=== PATIENT | female | born 1950 | race Caucasian/White ===

== ENCOUNTER 2019-04-21 09:21 | Outpatient (CLI) | payer MEDICARE, SELFPAY ==
--- NOTE | ~2019-04-21 | MM_ITS ---
EXAMINATION: MM screening jaylan BI w delbert HISTORY: Screening mammogram TECHNIQUE: Craniocaudal and mediolateral oblique 3-D tomosynthesis images were obtained and synthetic 2-D images were generated. CAD analysis was submitted and interpreted. COMPARISON: Comparison to multiple prior studies sequentially, with oldest reviewed study dated 11/05. BREAST PARENCHYMAL COMPOSITION: There are scattered areas of fibroglandular density. FINDINGS: There is no evidence of suspicious mass, calcification, or architectural distortion to sugg est malignancy in either breast. There has been no suspicious interval change. IMPRESSION: 1. No mammographic evidence of malignancy. 2. Recommend routine screening mammography in one year. BI-RADS Category 1: Negative Reviewed, dictated and finalized at location A. 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
== END 2019-04-21 09:22 | disposition home or self-care (01) ==
LOC: ANHIMG 09:26
PROVIDERS: PCP Family Medicine; Visit Provider Nurse Practitioner Obstetrics & Gynecology
DX: Z12.31 Encounter for screening mammogram for malignant neoplasm of breast (principal)
CPT/HCPCS: 77063; 77067

== ENCOUNTER 2019-11-29 01:04 | Outpatient (CLI) | payer MEDICARE, SELFPAY ==
[2019-11-29 19:19] LABS: SARS-CoV-2 RNA PCR Negative
== END 2019-11-29 01:05 | disposition home or self-care (01) ==
LOC: ANHCOVIDDT 01:04
PROVIDERS: PCP Family Medicine; Visit Provider Internal Medicine Gastroenterology
DX: Z01.812 Encounter for preprocedural laboratory examination (principal); Z20.828 Contact with and (suspected) exposure to other viral communicable diseases
CPT/HCPCS: 87635; C9803; U0003

== ENCOUNTER 2019-12-01 | Day surgery (SDC) | payer MEDICARE, SELFPAY ==
[2019-11-24 15:05] VITALS: BMI 23.4
[2019-12-01 10:07] VITALS: BP 140/63; PULSE 81; RESP 20; TEMP 36.4; O2SAT 100
[2019-12-01] MEDS: LACTATED RINGERS 1,000 ML 150 ML IV CONT (10:18)
--- NOTE | 2019-12-01 10:32 | PM.HPGS ---
History of Present Illness History of Present Illness Consent: Risks, benefits, and alternatives have been discussed and questions answered. Patient agrees to proceed with procedure. Chief complaint: hx of polyps Narrative: Maine Cook is a 69 year old female here for colon cancer screening. She has had polyps in the past PMFSH Past Medical History Medical History (Updated 12/01/19 @ 10:33 by Talib Fields MD) Amputation of left index finger 7.7.20 Family History Family History Grandparent Diabetes mellitus Mother Patient's mother is Family history of malignant neoplasm of breast in first degree relative Father Patient's father is Family history of pancreatic cancer Social History Social History Smoking status: Never smoker Alcohol intake: current Drinks per week: 4 Alcohol use details: WINE/BEER Substance use: current Substance use type: marijuana Other substance usage details: EDIBLES Last use: LAST WEEK Living arrangements: with family Spiritual care concerns: No Meds Home Medications and Allergies Home Medications Medication Instructions Recorded Confirmed Type pravastatin 10 mg tablet 10 mg PO DAILY #90 tablet 08/17/19 11/24/19 Rx ascorbate calcium (vitamin C) 500 500 mg PO DAILY 09/04/19 11/24/19 History mg tablet raloxifene 60 mg tablet 60 mg PO DAILY 09/04/19 11/24/19 History calcium carbonate [Calcium 500] 500 mg PO BID 11/24/19 11/24/19 History cholecalciferol (vitamin D3) 25 mcg PO DAILY 11/24/19 11/24/19 History [Vitamin D3] Allergies Allergy/AdvReac Type Severity Reaction Status Date / Time No Known Allergies Allergy Verified 12/01/19 10:05 Vital Signs Vital Signs - 24 hr 12/01/19 10:07 Temperature 36.4 C Pulse Rate 81 Respiratory Rate 20 Blood Pressure 140/63 Pulse Oximetry 100 Exam Resp: Auscultation: clear to auscultation bilaterally Cardio: Rate: regular rate Rhythm: regular rhythm GI: GI Palp: Yes Soft to palpation and No Tenderness to palpation present (GI) Assessment and Plan Assessment and plan (1) Colon cancer screening: Code(s): Z12.11 - Encounter for screening for malignant neoplasm of colon Status: Acute Assessment and Plan: Colonoscopy with possible biopsy or polypectomy or cautery or injection of substances.
--- NOTE | 2019-12-01 10:43 | P.PNAN_ITS ---
Anes - Initial Pre Proc Eval Procedure: Operation Date: 12/01/19 11:00 Proposed Procedures p Screening Colonoscopy - Talib Fields MD Date/Time: 12/01/19 10:43 Surgeon: Talib Fields MD Pre Op Diagnosis: hx of polyps Patient Data Age: 69 Gender: F Height: 5 ft 3 in Weight: 58.9 kg Last Vital Signs Temp 97.6 F 12/01/19 10:07 Pulse 81 12/01/19 10:07 Resp 20 12/01/19 10:07 BP 140/63 12/01/19 10:07 Pulse Ox 100 12/01/19 10:07 Allergies Allergy/AdvReac Type Severity Reaction Status Date / Time No Known Allergies Allergy Verified 12/01/19 10:05 Home Medications Medication Instructions Recorded Confirmed Type pravastatin 10 mg tablet 10 mg PO DAILY #90 tablet 08/17/19 11/24/19 Rx ascorbate calcium (vitamin C) 500 500 mg PO DAILY 09/04/19 11/24/19 History mg tablet raloxifene 60 mg tablet 60 mg PO DAILY 09/04/19 11/24/19 History calcium carbonate [Calcium 500] 500 mg PO BID 11/24/19 11/24/19 History cholecalciferol (vitamin D3) 25 mcg PO DAILY 11/24/19 11/24/19 History [Vitamin D3] Patient hx anesthesia problems: none Family hx anesthesia problems: none PMFSH Past Medical History Medical History (Updated 12/01/19 @ 10:43 by Juan Hull MD) Amputation of left index finger 7.7.20 Mixed hyperlipidemia Family History Family History Grandparent Diabetes mellitus Mother Patient's mother is Family history of malignant neoplasm of breast in first degree relative Father Patient's father is Family history of pancreatic cancer Social History Social History Smoking status: Never smoker Alcohol intake: current Drinks per week: 4 Alcohol use details: WINE/BEER Substance use: current Substance use type: marijuana Other substance usage details: EDIBLES Last use: LAST WEEK Living arrangements: with family Spiritual care concerns: No Anes - Eval Final PreProcedure Day of Procedure 12/01/19 10:43 Patient weight: normal Heart: regular rate and rhythm Lungs: clear to auscultation Airway: Mallampati scale class II Neurological: alert and oriented Last oral intake: >/= 8 hours ASA classification: II Emergent: no Anesthetic plan: proceed Anesthesia type and monitoring: general GIVS and standard monitoring Informed Consent: The patient's anesthetic plan and its attendant risks and bene fits were discussed with the patient/family/POA. Questions were solicited and answers provided to the satisfaction of the patient/family/POA.
[2019-12-01 11:10] VITALS: BP 111/60; PULSE 75; RESP 16; O2SAT 98
[2019-12-01 11:20] VITALS: BP 115/47; PULSE 68; RESP 16; O2SAT 100
[2019-12-01 11:30] VITALS: BP 114/75; PULSE 65; RESP 14; O2SAT 100
== END 2019-12-01 11:47 | disposition home or self-care (01) ==
PROVIDERS: PCP Family Medicine; Visit Provider Internal Medicine Gastroenterology
PROC: 0DJD8ZZ Inspection of Lower Intestinal Tract, Via Natural or Artificial Opening Endoscopic (ICD-10-PCS; CPT 45378; principal; 2019-12-01 11:00)
DX: Z12.11 Encounter for screening for malignant neoplasm of colon (principal); C18.0 Malignant neoplasm of cecum; D12.3 Benign neoplasm of transverse colon; K64.8 Other hemorrhoids; E78.2 Mixed hyperlipidemia; F12.90 Cannabis use, unspecified, uncomplicated
CPT/HCPCS: 45380; 45381; 88305; J2704; J7120

== ENCOUNTER 2019-12-15 13:51 | Outpatient (CLI) | payer MEDICARE, SELFPAY ==
--- NOTE | ~2019-12-15 | CT_ITS ---
EXAMINATION: CT abdomen pelvis w con EXAM DATE: 12/15/2019 14:20 INDICATION: Colon cancer. TECHNIQUE: Spiral CT of the abdomen and pelvis was performed following intravenous injection of 100 m L Omnipaque 350. Axial, coronal and sagittal images were reviewed. The dose-length product (DLP) fo r this examination was 303.73 mGy-cm. The exposure was tailored according to patient size (auto mA e xposure control), and iterative reconstruction (ASIR) was used as additional dose reduction technique . There is no prior study for comparison. FINDINGS: There is region of ascending colonic wall irregularity, could be the cancer stated in histo ry for indication of exam. This region is for about 5 cm in length. There is a round lymph node in th e mesentery adjacent to this measuring 7 mm in size, which is considered within normal limits, but ro und shape is suspicious for early metastatic involvement. Liver fluid density lesions consistent with cysts. Largest in the left liver lobe measuring 2.2 cm. S pleen, adrenal glands, pancreas are unremarkable. Gallbladder is unremarkable. No biliary obstructi on. Portal and splenic veins are patent. Kidneys enhance symmetrically. There is no hydronephrosis . The uterus is unremarkable. Some nabothian cysts. The bladder is unremarkable. There is no retr operitoneal or pelvic lymphadenopathy. There is mild scattered arteriosclerotic disease. The appendix is normal. The stomach and small bowel are unremarkable. There is expected amount of c olonic stool. No free intraperitoneal gas. The heart is normal in size. There are no pericardial or pleural effusions. The lung bases are unremarkable. Mild lumbar dextroscoliosis. There are no o steoblastic or osteolytic lesions identified. IMPRESSION: Short segment ascending colonic wall irregularity suspicious for adenocarcinoma. Suspici on of positive adjacent mesenteric lymph nodes. Reviewed, dictated and finalized at location A. IMPRESSION: Short segment ascending colonic wall irregularity suspicious for ad enocarcinoma. Suspicion of positive adjacent mesenteric lymph nodes.
[2019-12-15 14:15] LABS: Estimated Glomerular Filt Rate > 60
== END 2019-12-15 13:52 | disposition home or self-care (01) ==
LOC: ANHIMG 13:56
PROVIDERS: PCP Family Medicine; Visit Provider Internal Medicine Gastroenterology
DX: C18.0 Malignant neoplasm of cecum (principal)
CPT/HCPCS: 74177; Q9967

== ENCOUNTER 2019-12-20 09:54 | Outpatient (CLI) | payer MEDICARE, SELFPAY ==
--- NOTE | ~2019-12-20 | XR_ITS ---
EXAMINATION: XR chest 2V DATE: 12/20/2019 10:51 INDICATION: Colon cancer. Preop. TECHNIQUE: Frontal and lateral views of the chest were obtained. COMPARISON: CT abdomen and pelvis 12/15/2019 FINDINGS: There is mild scarring at right lung apex. No pleural effusion or pneumothorax. The heart s ize is normal. IMPRESSION: 1. Mild scarring at right lung apex. Reviewed, dictated and finalized at location A.
--- NOTE | 2019-12-20 10:35 | ECG_ITS ---
Measurements Intervals [place] Rate: 58 P: 60 AR: 137 QRS: 18 QRSD: 80 T: 32 QT: 436 QTc: 432 Interpretive Statements SINUS BRADYCARDIA POSSIBLE LEFT ATRIAL ENLARGEMENT INCOMPLETE RIGHT BUNDLE BRANCH BLOCK BASELINE ARTIFACT- I, II, III, AVR, AVL, AVF BORDERLINE ECG Electronically Signed On 12-20-2019 10:56:23 CDT by Ronaldo Allison D.O.
[2019-12-20 11:06] LABS: Basophils Percent Auto 0.6 % (0.2-1.2); Eosinophils Absolute Auto 0.2 K/mm3 (0-0.3); Eosinophils Percent Auto 2.8 % (0-4.4); Hematocrit 35.7 % (37.0-47.0); Hemoglobin 11.4 g/dL (12.0-15.0); Immature Granulocyte Absolute 0.05 K/mm3 (0.00-0.031); Immature Granulocyte Percent A 0.7 % (0-0.5); Lymphocytes Absolute Auto 1.93 K/mm3 (0.9-3.2); Lymphocytes Percent Auto 26.8 % (18.3-44.2); Mean Corpuscular HGB Conc 31.9 g/dl (32-36); Mean Corpuscular Hemoglobin 31.2 pg (26-34); Mean Corpuscular Volume 97.8 fl (80-100); Mean Platelet Volume 10.5 fl (7.4-10.4); Monocytes Absolute Auto 0.4 K/mm3 (0.1-0.6); Neutrophils Absolute Auto 4.6 K/mm3 (1.3-6.7); Neutrophils Percent Auto 63.1 % (45.5-73.1); Platelet Count Result 269 k/mm3 (150-375); Red Blood Count 3.65 M/mm3 (4.2-5.4); White Blood Count 7.2 K/mm3 (4.5-10.0)
[2019-12-20 11:17] LABS: Anion Gap 5 mmol/L (8-16); Blood Urea Nitrogen 17 mg/dL (7-17); Carbon Dioxide 32 mmol/L (22-30); Chloride 105 mmol/L (98-107); Estimated Glomerular Filt Rate > 60; Glucose 105 mg/dL (65-105); Potassium 4.1 mmol/L (3.4-5.0); Sodium 142 mmol/L (137-145)
[2019-12-20 11:46] LABS: Carcinoembryonic Antigen 2.8 ng/mL (0.0-3.0)
== END 2019-12-20 09:55 | disposition home or self-care (01) ==
LOC: ANHSURGERY 09:56
PROVIDERS: PCP Family Medicine; Visit Provider Surgery
DX: Z01.818 Encounter for other preprocedural examination (principal); C18.2 Malignant neoplasm of ascending colon; R91.8 Other nonspecific abnormal finding of lung field
CPT/HCPCS: 36415; 71046; 80048; 82378; 85025; 86850; 86900; 86901; 93005

== ENCOUNTER 2019-12-25 00:25 | Outpatient (CLI) | payer MEDICARE, SELFPAY ==
[2019-12-25 19:58] LABS: SARS-CoV-2 RNA PCR Negative
== END 2019-12-25 00:26 | disposition home or self-care (01) ==
LOC: ANHCOVIDDT 00:25
PROVIDERS: PCP Family Medicine; Visit Provider Surgery
DX: Z01.812 Encounter for preprocedural laboratory examination (principal); Z20.828 Contact with and (suspected) exposure to other viral communicable diseases
CPT/HCPCS: 87635; C9803; U0003

== ENCOUNTER 2019-12-27 02:39 | Day surgery (SDC) | payer MEDICARE, SELFPAY ==
[2019-12-20 10:15] VITALS: BP 134/58; PULSE 66; RESP 18; TEMP 36.9; O2SAT 100; BMI 23.7
--- NOTE | 2019-12-26 16:04 | WPDANESEPPF ---
Anes - Initial Pre Proc Eval Procedure: Operation Date: 12/27/19 10:30 Proposed Procedures p Hand Assisted Laparoscopic Right Colectomy - Mitchell Hernandez MD Date/Time: 12/26/19 16:04 Surgeon: Mitchell Hernandez MD Pre Op Diagnosis: ascending colon CA Patient Data Age: 69 Gender: F Height: 1.6 m Weight: 60.8 kg Last Vital Signs Temp 36.9 C 12/20/19 10:15 Pulse 66 12/20/19 10:15 Resp 18 12/20/19 10:15 BP 134/58 L 12/20/19 10:15 Pulse Ox 100 12/20/19 10:15 Allergies Allergy/AdvReac Type Severity Reaction Status Date / Time No Known Allergies Allergy Verified 12/18/19 09:11 Home Medications Medication Instructions Recorded Confirmed Type raloxifene 60 mg tablet 60 mg PO DAILY 09/04/19 12/20/19 History calcium carbonate [Calcium 500] 1,000 mg PO BID 11/24/19 12/20/19 History cholecalciferol (vitamin D3) 25 mcg PO DAILY 11/24/19 12/20/19 History [Vitamin D3] erythromycin 500 mg tablet 1 g PO ONCE #6 tablet 12/18/19 12/20/19 Rx neomycin 500 mg tablet 1 g PO ONCE #6 tablet 12/18/19 12/20/19 Rx ascorbic acid (vitamin C) [Vitamin 500 mg PO DAILY 12/20/19 12/20/19 History C] cyanocobalamin (vitamin B-12) 1,000 mcg PO DAILY 12/20/19 12/20/19 History pravastatin 10 mg PO HS 12/20/19 12/20/19 History ECG: Date of Service: 12/20/19 Procedure(s): CA 12 lead EKG Accession Number(s): [id number] cc: ~ Measurements Intervals [place] Rate: 58 P: 60 TN: 137 QRS: 18 QRSD: 80 T: 32 QT: 436 QTc: 432 Interpretive Statements SINUS BRADYCARDIA POSSIBLE LEFT ATRIAL ENLARGEMENT INCOMPLETE RIGHT BUNDLE BRANCH BLOCK BASELINE ARTIFACT- I, II, III, AVR, AVL, AVF BORDERLINE ECG Electronically Signed On 12-20-2019 10:56:23 CDT by Ronaldo Allison D.O. Dictated By: Ronaldo Allison DO 12/20/19 1106 Patient hx anesthesia problems: none Family hx anesthesia problems: none PMFSH Past Medical History Medical History (Updated 12/18/19 @ 10:30 by Radha Salinas [facility]) Abnormal colonoscopy 10.. Amputation of left index finger 7.7.20 Colon cancer screening Colonic mass Mixed hyperlipidemia Surgical History Surgical History History of x3 History of colonoscopy Family History Family History Grandparent Diabetes mellitus Mother Patient's mother is Family history of malignant neoplasm of breast in first degree relative Father Patient's father is Family history of pancreatic cancer Other Cancer Social History Social History Smoking status: Former smoker Alcohol intake: current Drinks per week: 4 Substance use: current Substance use type: marijuana Other substance usage details: EDIBLES Last use: STATES ABOUT A WEEK AGO Living arrangements: with family Gender identity (if verbalized by the patient): Female Spiritual care concerns: No Anes - Eval Final PreProcedure Day of Procedure 12/26/19 16:04 Patient weight: normal Heart: regular rate and rhythm Lungs: clear to auscultation and normal air movement Airway: Mallampati scale class II Neurological: alert and oriented Last oral intake: >/= 8 hours ASA classification: III Emergent: no Anesthetic plan: proceed Anesthesia type and monitoring: general ETT Informed Consent: The patient's anesthetic plan and its attendant risks and benefits were discussed with the patient/family/POA. Questions were solicited and answers provided to the satisfaction of the patient/family/POA.
[2019-12-27] VITALS (14 sets, daily range): BP systolic 118–146; BP diastolic 51–78; PULSE 69–105; RESP 10–18; TEMP 36.3–37.1; O2SAT 95–100
--- NOTE | 2019-12-27 07:02 | WPDHPUPDATE1 ---
History and Physical Update Update Date/Time: 12/27/19 07:02 History and Physical has been reviewed, including an updated exam of the patient. There are NO changes in the patient's condition. Risks, benefits, and alternatives have been discussed and questions answered. Patient agrees to proceed with procedure.
[2019-12-27] MEDS: LACTATED RINGERS 1,000 ML 30 ML IV CONT ×2 (09:05→14:05)
[2019-12-27] MEDS: KETOROLAC 15 MG/ML VIAL (*BKC) IV PUSH (09:20)
[2019-12-27] MEDS: ACETAMINOPHEN 500 MG TABLET 1000 MG PO (09:20)
--- NOTE | 2019-12-27 10:22 | SUR.PREOP ---
1000 PT UPDATED ON DELAYED SURGERY TIME, DENIES NEEDS AT THIS TIME.
[2019-12-27] MEDS: ALVIMOPAN 12 MG CAPSULE PO (11:05)
[2019-12-27] MEDS: ceFAZolin 2 GM/D5W 50 ML 2 GM/50 ML BAG IVPB (11:49)
[2019-12-27] MEDS: BUPIVACAINE/EPINEPHRINE 0.25% 50 ML VIAL INFILTRATE (12:34)
--- NOTE | 2019-12-27 14:13 | PM.PROC ---
Procedure Note - Detailed Date of procedure: 12/27/19 Pre-op diagnosis: ascending colon CA Ascending colon cancer Post-op diagnosis: same Procedure performed: Hand access laparoscopic right colectomy with ileotransverse anastomosis Description of procedure: The patient was taken to surgery and induced into general anesthesia. The abdomen was prepped and draped. The proposed hand access port incision was marked in the upper midline. Local was infiltrated into the area of the anticipated incision as was the subcutaneous. Incision was made and dissection was carried down through the subcutaneous to the fascia. Additional local was infiltrated into the fascia. The fascia was opened in the midline and then peritoneum was opened. We extended the opening the length of the wound. The Kade was placed and then the GelPort. With a hand in the abdomen, I placed the right lower quadrant trocar. Local was infiltrated prior to placement of the trocar. Once the trocar was in position, we insufflated. The left lower quadrant trocar was then placed again using local but under direct visualization. We continued insufflation and were able to see the tattooing of the right colon cancer. It appeared to be just distal to the cecum. I exposed the distal ileum and then using the LigaSure divided the peritoneum to the distal ileum at its base. I then used sharp and blunt dissection to create a retroperitoneal pocket. I then continued with a medial to lateral dissection of the ascending colon using mostly blunt dissection. On dissecting up to the transverse mesocolon, I stopped this dissection. I then exposed the lateral peritoneal attachments to the ascending colon and divided those. The mesentery to the distal ileum was then exposed. I could palpate the ileocolic artery. I divided the mesentery in roughly the area where I planned to do the proximal resection. I used the LigaSure again and divided the mesentery up to the area on the distal ileum where the resection was planned. I then divided the mesentery closer to its root over to the ileocolic artery. I dissected around the ileocolic artery. Once it was dissected adequately, I used the LigaSure to divide it. There was no bleeding. I then continued using the LigaSure and divided the mesentery to the ascending colon. I took down the hepatocolic ligament and some omental adhesions at the hepatic flexure. I then continued dividing the mesentery to the hepatic flexure and proximal transverse colon. This continued over and I divided the right branch of the middle colic artery again using LigaSure. Care was taken to avoid the duodenum and the stomach. Some additional omental adhesions were taken down. I then had enough mobilization of the ascending colon and transverse colon to proceed with evisceration and anastomosis. We stopped insufflation. I removed the GelPort. I brought out the ascending colon with the distal ileum and most of the transverse colon. All looked good. I brought the area where I planned to divide the distal ileum in the vicinity of where the distal line of resection would be at the proximal transverse colon. These were then sutured together using seromuscular interrupted 4 0 silk suture. They were sutured in side to side fashion planning a stapled 2 layer [id number] but functional end-to-end anastomosis. After these sutures were placed, I made an enterotomy and a colotomy such that I could pass the TLC 75 stapler through each of the limbs of bowel. This was done and I stapled the distal ileum and transverse colon in this fashion. I then used a reload on the TLC 75 stapler and divided the ascending colon including the entero-colotomy from the anastomosis. This went well and the right colon was passed off as a specimen. I then used 4 0 silk Lembert sutures to imbricate the transverse staple line I had just created. The bowel looked quite good. It was healthy, well vascularized, and under no tension wh
[2019-12-27] MEDS: fentaNYL CITRATE INJ (*CRX) 100 MCG/2 ML VIAL 25 MCG IV PUSH ×2 (14:50→14:57)
--- NOTE | 2019-12-27 16:01 | ADMGEN ---
This patient, Maine Cook, was admitted to 2 Medical Room 242-. Patient/family oriented to hospital policies and general routines including ID bracelet, bed and alarms, visiting hours, pain management, procedures, bathroom and other care routines, personal items, smoking policy, room service/diet, and visiting hours. Information on how to activate the Rapid Response Team has been discussed. Patient/Family are encouraged to report perceived risks to care and to ask questions if they do not understand what they are told or what they should do.
[2019-12-27] MEDS: LACTATED RINGERS 1,000 ML 80 ML IV CONT (16:19)
[2019-12-27] MEDS: PRAVASTATIN SODIUM 10 MG TABLET PO (21:12)
[2019-12-27] MEDS: ENOXAPARIN 30 MG/0.3 ML SYRINGE SUB-Q (21:12)
[2019-12-27] MEDS: HYDROcodone/acetaminophen (*CRX) 5-325 MG TABLET 1 TAB PO (22:00)
[2019-12-28] MEDS: LACTATED RINGERS 1,000 ML 80 ML IV CONT (04:13)
[2019-12-28 05:13] LABS: Hematocrit 34.7 % (37.0-47.0); Hemoglobin 11.3 g/dL (12.0-15.0); Mean Corpuscular HGB Conc 32.6 g/dl (32-36); Mean Corpuscular Hemoglobin 31.5 pg (26-34); Mean Corpuscular Volume 96.7 fl (80-100); Mean Platelet Volume 10.3 fl (7.4-10.4); Platelet Count Result 252 k/mm3 (150-375); Red Blood Count 3.59 M/mm3 (4.2-5.4); Red Cell Distribution Width 13.2 % (11.5-14.5); White Blood Count 14.8 K/mm3 (4.5-10.0)
[2019-12-28 05:22] VITALS: BP 122/64; PULSE 71; RESP 20; TEMP 36.8; O2SAT 100
[2019-12-28 05:29] LABS: Anion Gap 6 mmol/L (8-16); Blood Urea Nitrogen 12 mg/dL (7-17); Calcium 8.6 mg/dL (8.4-10.2); Carbon Dioxide 28 mmol/L (22-30); Chloride 107 mmol/L (98-107); Estimated CRCL calculation 42 ml/min; Estimated Glomerular Filt Rate > 60; Glucose 134 mg/dL (65-105); Potassium 4.1 mmol/L (3.4-5.0); Sodium 141 mmol/L (137-145)
--- NOTE | 2019-12-28 07:45 | WPDANESPN ---
Anes - Prog Note Post-Op Date/Time: 12/28/19 07:45 Cardiovascular status: normal Respiratory status: normal Airway patency: baseline Mental status: baseline Post-Op hydration status: normal Vital Signs: Last Vital Signs Temp 36.8 C 12/28/19 05:22 Pulse 71 12/28/19 05:22 Resp 20 12/28/19 05:22 BP 122/64 12/28/19 05:22 Pulse Ox 100 12/28/19 05:22 Pain Score (VAS): 04/03 I/O: Intake & Output 12/27/19 12/27/19 12/28/19 15:59 23:59 07:59 Intake Total 640 1000 1500 Output Total 800 Balance 640 1000 700 Laboratory Tests 12/28/19 04:58 12/28/19 04:58 12/28/19 12/28/19 04:58 04:58 WBC 14.8 H RBC 3.59 L Hgb 11.3 L Hct 34.7 L MCV 96.7 MCH 31.5 MCHC 32.6 RDW 13.2 Plt Count 252 MPV 10.3 Sodium 141 Potassium 4.1 Chloride 107 Carbon Dioxide 28 Anion Gap 6 L BUN 12 D Creatinine 0.90 Estim Creat Clear Calc 42 Estimated GFR > 60 Glucose 134 H Calcium 8.6 Post-procedural complaints: none Patient Feedback: Patient satisfied with anesthetic care.
[2019-12-28] MEDS: ALVIMOPAN 12 MG CAPSULE PO (08:18)
[2019-12-28] MEDS: RALOXIFENE HCL (*CHEMO) 60 MG TABLET PO (08:18)
[2019-12-28] MEDS: ASCORBIC ACID 500 MG TABLET PO (08:18)
[2019-12-28] MEDS: PANTOPRAZOLE 40 MG TABLET PO (08:18)
[2019-12-28] MEDS: ENOXAPARIN 30 MG/0.3 ML SYRINGE SUB-Q (08:32)
--- NOTE | 2019-12-28 08:34 | PM.DS ---
DS: Admitting Diagnosis Admitting Diagnosis Admitting Diagnosis: right colon cancer DS: Discharge Diagnosis Discharge Diagnosis (1) Ascending colon malignant neoplasm: Code(s): C18.2 - Malignant neoplasm of ascending colon Status: Chronic Assessment and Plan: doing very well status post hand access laparoscopic right colectomy yesterday December 27, 2019. DS: Summary Time Spent with Patient Time attestation: Total time spent providing and/or coordinating discharge services: Patient underwent hand access laparoscopic right colectomy on the day of admission 12/27/2019. There was essentially no bleeding associated with this surgery. A stapled [id number] but functional end-to-end anastomosis was performed at surgery. Postoperatively, the patient was up walking in the halls the morning after surgery. She had only been taking oral pain medication. She was hungry and eating well. Labs were stable. She was able to be discharged later in the day postop day 1. Exam GI: Inspection: non-distended and incision ( All incisions dry and intact.) GI Palp: Yes Soft to palpation and Yes Tenderness to palpation present (GI) ( Minimal tenderness, less than expected.) Auscultation: normal bowel sounds DS: Data Data Completed and Pending Pending studies at discharge: Pending at discharge 12/27/19 13:15 Surgical [PTH] Routine Labs on day of discharge: Labs from last 24 hours 12/28/19 12/28/19 04:58 04:58 WBC 14.8 H RBC 3.59 L Hgb 11.3 L Hct 34.7 L MCV 96.7 MCH 31.5 MCHC 32.6 RDW 13.2 Plt Count 252 MPV 10.3 Sodium 141 Potassium 4.1 Chloride 107 Carbon Dioxide 28 Anion Gap 6 L BUN 12 D Creatinine 0.90 Estim Creat Clear Calc 42 Estimated GFR > 60 Glucose 134 H Calcium 8.6 Discharge Plan Discharge Attending physician on discharge: Mitchell Hernandez Discharging Clinician: Mitchell Hernandez Anticipated Discharge Date/Time: 12/28/19 17:00 Patient Disposition: Home, Self-Care Activity: may shower, no straining and as tolerated Diet: regular Wound Care Instructions: incision open to air Discharge Instructions: Ambulate 3-4 x per day and as tolerated. No lifting over 15-20lbs. May bathe or shower. Stairs are OK. May drive a car in 3 days. Remove any dressings before shower and replace after. Patient Instructions: Antibiotic Form Stand Alone Forms: General Discharge Information Follow-up/Referrals: Mitchell Hernandez MD [Physician] - Keep Reg. Scheduled Appt. Maribel Coates MD [Primary Care Provider] - 2 Weeks Discharge Medications: New hydrocodone-acetaminophen 5-325 mg tablet 1 - 2 tablet PO Q6H PRN (Reason: pain) Qty: 7 RF: 0 ibuprofen 600 mg tablet 600 mg PO Q6H PRN (Reason: pain) Qty: 14 RF: 0 Continued raloxifene [Evista] 60 mg tablet 60 mg PO DAILY RF: 0 calcium carbonate [Calcium 500] 500 mg calcium (1,250 mg) Tablet,Chewable 1,000 mg PO QAM RF: 0 cholecalciferol (vitamin D3) [Vitamin D3] 25 mcg (1,000 unit) Tablet 25 mcg PO DAILY RF: 0 cyanocobalamin (vitamin B-12) 1,000 mcg Tablet 1,000 mcg PO DAILY RF: 0 ascorbic acid (vitamin C) [Vitamin C] 500 mg Tablet 500 mg PO DAILY RF: 0 pravastatin 10 mg tablet 10 mg PO HS RF: 0 Date of admission: 12/27/19 15:34 Primary Care Provider: Maribel Coates Admitting Provider: Mitchell Hernandez Attending physician on admission: Mitchell Hernandez Condition: Improved
[2019-12-28 14:00] VITALS: BP 147/75; PULSE 78; RESP 14; TEMP 36.5; O2SAT 100
== END 2019-12-28 08:42 | disposition home or self-care (01) ==
LOC: ANHSURGERY 08:30 → ANH2MED 12-28 08:40
PROVIDERS: PCP Family Medicine; Visit Provider Surgery
PROC: 0DTF4ZZ Resection of Right Large Intestine, Percutaneous Endoscopic Approach (ICD-10-PCS; CPT 44204; principal; 2019-12-27 10:30)
DX: C18.2 Malignant neoplasm of ascending colon (principal); E78.2 Mixed hyperlipidemia; Z87.891 Personal history of nicotine dependence; F12.90 Cannabis use, unspecified, uncomplicated
CPT/HCPCS: 44204; 36415; 80048; 85027; 88309; 99199; A9270; J0690; J1170; J1650; J1885; J3010; J7120

== ENCOUNTER 2020-01-02 10:03 | Outpatient (CLI) | payer MEDICARE, SELFPAY ==
--- NOTE | ~2020-01-02 | XR_ITS ---
EXAMINATION: XR abdomen obstructive series EXAM DATE: 01/02/2020 10:59 INDICATION: R10.9 - Unspecified abdominal pain . TECHNIQUE: Frontal upright projection of the upper abdomen, frontal projection of the lower abdomen f or interpretation. There is no prior study for comparison. FINDINGS: Multiple loops of moderately distended small bowel with air-fluid levels, ileus or obstruc tion. Relative paucity of colonic gas and stool. No free intraperitoneal air suspected. There are mil d bony degenerative changes. Mild lumbar dextroscoliosis. IMPRESSION: Moderately distended small bowel with air-fluid levels, ileus or obstruction. Reviewed, dictated and finalized at location A. N TUNER ELECTRONIC IMPRESSION: Moderately distended small bowel with air-fluid levels, ileus or ob struction.
[2020-01-02 10:28] LABS: Basophils Absolute Auto 0.1 K/mm3 (0.0-0.1); Basophils Percent Auto 0.7 % (0.2-1.2); Eosinophils Absolute Auto 0.3 K/mm3 (0-0.3); Eosinophils Percent Auto 3.2 % (0-4.4); Hematocrit 36.4 % (37.0-47.0); Hemoglobin 11.6 g/dL (12.0-15.0); Immature Granulocyte Absolute 0.04 K/mm3 (0.00-0.031); Immature Granulocyte Percent A 0.5 % (0-0.5); Lymphocytes Absolute Auto 1.37 K/mm3 (0.9-3.2); Lymphocytes Percent Auto 15.7 % (18.3-44.2); Mean Corpuscular HGB Conc 31.9 g/dl (32-36); Mean Corpuscular Hemoglobin 30.8 pg (26-34); Mean Corpuscular Volume 96.6 fl (80-100); Mean Platelet Volume 10.4 fl (7.4-10.4); Monocytes Absolute Auto 0.8 K/mm3 (0.1-0.6); Monocytes Percent Auto 9.1 % (2.6-8.5); Neutrophils Absolute Auto 6.2 K/mm3 (1.3-6.7); Neutrophils Percent Auto 70.8 % (45.5-73.1); Platelet Count Result 283 k/mm3 (150-375); Red Blood Count 3.77 M/mm3 (4.2-5.4); Red Cell Distribution Width 12.6 % (11.5-14.5); White Blood Count 8.7 K/mm3 (4.5-10.0)
[2020-01-02 10:39] LABS: Anion Gap 7 mmol/L (8-16); Blood Urea Nitrogen 18 mg/dL (7-17); Calcium 9.1 mg/dL (8.4-10.2); Carbon Dioxide 32 mmol/L (22-30); Chloride 100 mmol/L (98-107); Estimated Glomerular Filt Rate > 60; Glucose 118 mg/dL (65-105); Potassium 4.3 mmol/L (3.4-5.0); Sodium 139 mmol/L (137-145)
== END 2020-01-02 10:04 | disposition home or self-care (01) ==
PROVIDERS: PCP Family Medicine; Visit Provider Surgery
DX: R10.9 Unspecified abdominal pain (principal); C18.2 Malignant neoplasm of ascending colon
CPT/HCPCS: 36415; 74019; 80048; 85025

== ENCOUNTER 2020-04-16 11:34 | Outpatient (CLI) | payer MEDICARE, SELFPAY ==
[2020-04-16 11:51] LABS: Basophils Absolute Auto 0.1 K/mm3 (0.0-0.1); Basophils Percent Auto 0.8 % (0.2-1.2); Eosinophils Absolute Auto 0.1 K/mm3 (0-0.3); Eosinophils Percent Auto 1.9 % (0-4.4); Hematocrit 42.6 % (37.0-47.0); Hemoglobin 13.6 g/dL (12.0-15.0); Immature Granulocyte Absolute 0.03 K/mm3 (0.00-0.031); Immature Granulocyte Percent A 0.5 % (0-0.5); Lymphocytes Absolute Auto 1.66 K/mm3 (0.9-3.2); Lymphocytes Percent Auto 26.5 % (18.3-44.2); Mean Corpuscular HGB Conc 31.9 g/dl (32-36); Mean Corpuscular Hemoglobin 29.3 pg (26-34); Mean Corpuscular Volume 91.8 fl (80-100); Mean Platelet Volume 10.1 fl (7.4-10.4); Monocytes Absolute Auto 0.4 K/mm3 (0.1-0.6); Monocytes Percent Auto 6.5 % (2.6-8.5); Neutrophils Percent Auto 63.8 % (45.5-73.1); Platelet Count Result 222 k/mm3 (150-375); Red Blood Count 4.64 M/mm3 (4.2-5.4); Red Cell Distribution Width 14.3 % (11.5-14.5); White Blood Count 6.3 K/mm3 (4.5-10.0)
[2020-04-16 13:06] LABS: Alanine Aminotransferase 19 U/L (4-35); Albumin Level 4.2 g/dL (3.5-5.1); Alkaline Phosphatase 61 U/L (38-126); Anion Gap 8 mmol/L (8-16); Aspartate Amino Transferase 32 U/L (14-36); Bilirubin,Total 0.7 mg/dL (0.2-1.3); Blood Urea Nitrogen 21 mg/dL (7-17); Calcium 9.4 mg/dL (8.4-10.2); Carbon Dioxide 28 mmol/L (22-30); Chloride 103 mmol/L (98-107); Estimated Glomerular Filt Rate > 60; Glucose 94 mg/dL (65-105); Potassium 4.6 mmol/L (3.4-5.0); Sodium 139 mmol/L (137-145)
[2020-04-16 13:35] LABS: Carcinoembryonic Antigen 2.8 ng/mL (0.0-3.0)
== END 2020-04-16 11:35 | disposition home or self-care (01) ==
LOC: ANHLAB 11:36
PROVIDERS: PCP Family Medicine; Visit Provider Internal Medicine Hematology & Oncology
DX: C18.2 Malignant neoplasm of ascending colon (principal)
CPT/HCPCS: 36415; 80053; 82378; 85025

== ENCOUNTER 2020-04-16 13:59 | Outpatient (CLI) | payer MEDICARE, SELFPAY ==
--- NOTE | ~2020-04-16 | CT_ITS ---
EXAMINATION: CT abdomen pelvis w con EXAM DATE: 04/16/2020 11:20 INDICATION: Colon cancer. Follow-up. Abdominal pain. TECHNIQUE: Spiral CT of the abdomen and pelvis was performed following intravenous injection of 100 m L Omnipaque 350. Axial, coronal and sagittal images were reviewed. The dose-length product (DLP) fo r this examination was 273.64 mGy-cm. The exposure was tailored according to patient size (auto mA e xposure control), and iterative reconstruction (ASIR) was used as additional dose reduction technique . Comparison is made to prior examination from 12/15/2019. FINDINGS: There are scattered liver cysts. There is a flash filling hemangioma in the right lower lob e of the liver measuring 1 cm. The liver, spleen, adrenal glands and pancreas are otherwise unremark able. Gallbladder is unremarkable. No biliary obstruction. Portal and splenic veins are patent. K idneys enhance symmetrically. There is no hydronephrosis. The uterus is unremarkable. The bladde r is unremarkable. There is no retroperitoneal or pelvic lymphadenopathy. There is mild scattered arteriosclerotic disease. There is been interval right hemicolectomy, unremarkable anastomosis site. The stomach and small bow el are unremarkable. There is expected amount of colonic stool. No free intraperitoneal gas. The heart is normal in size. There are no pericardial or pleural effusions. The lung bases are unremar kable. There are no osteoblastic or osteolytic lesions identified. IMPRESSION: 1. Interval right hemicolectomy. No evidence metastatic disease. 2. Small liver hemangioma. Reviewed, dictated and finalized at location B. ICE MASSAGE THERAPIST
[2020-04-16 11:13] LABS: Estimated Glomerular Filt Rate > 60
== END 2020-04-16 14:00 ==
PROVIDERS: PCP Family Medicine; Visit Provider Internal Medicine Hematology & Oncology
DX: C18.2 Malignant neoplasm of ascending colon (principal); Z90.49 Acquired absence of other specified parts of digestive tract
CPT/HCPCS: 74177; Q9967

== ENCOUNTER 2020-04-22 09:01 | Outpatient (CLI) | payer MEDICARE, SELFPAY ==
--- NOTE | ~2020-04-22 | DEXA_ITS ---
Bone Density Report Name: Maine Cook Age: 69 Sex: Female Ethnicity: White Date of : 1950 Indication: monitoring treatment; height loss; cancer; postmenopausal Referring Provider: EMILIE GOLD Study: Bone densitometry was performed. Exam Date: April 22, 2020 Accession number: [id number] Bone Density: Region BMD T-score Z-score Classification AP Spine (L1-L4) 0.981 -0.6 1.6 Normal Femoral Neck (Left) 0.794 -0.5 1.4 Normal Total Hip (Left) 0.910 -0.3 1.3 Normal Total Hip Bilateral Avg 0.868 -0.7 1.0 Normal Femoral Neck (Right) 0.685 -1.5 0.4 Osteopenia Total Hip (Right) 0.825 -1.0 0.6 Normal World Health Organization criteria for BMD impression classify patients as: Normal (T-score at or above -1.0), Osteopenia (T-score between -1.0 and -2.5), or Osteoporosis (T-score at or below -2.5). 10-year Fracture Risk: FRAX not reported because: Treated for osteoporosis Previous Exams: Region Exam Age BMD T-score BMD Change BMD Change Date g/cm2 vs Baseline vs Previous AP Spine(L1-L4) 04/22/2020 69 0.981 -0.6 0.026(2.7%)# 0.032(3.3%)* 04/19/2018 67 0.949 -0.9 -0.006(-0.6%)# -0.001(-0.1%) 12/03/2015 65 0.950 -0.9 -0.005(-0.5%)# 0.005(0.6%) 11/02/2013 63 0.945 -0.9 -0.010(-1.0%)# -0.010(-1.0%)# 10/02/2011 61 0.955 -0.8 Total Hip(Left) 04/22/2020 69 0.910 -0.3 -0.066(-6.7%)# 0.005(0.5%) 04/19/2018 67 0.905 -0.3 -0.070(-7.2%)# 0.026(2.9%) 12/03/2015 65 0.879 -0.5 -0.096(-9.9%)# -0.039(-4.3%)* 11/02/2013 63 0.919 -0.2 -0.057(-5.8%)# -0.057(-5.8%)# 10/02/2011 61 0.976 0.3 Total Hip(Right) 04/22/2020 69 0.825 -1.0 -0.094(-10.3%) -0.055(-6.2%)* 04/19/2018 67 0.880 -0.5 -0.040(-4.3%)# 0.027(3.2%) 12/03/2015 65 0.853 -0.7 -0.067(-7.3%)# -0.020(-2.3%) 11/02/2013 63 0.873 -0.6 -0.047(-5.1%)# -0.047(-5.1%)# 10/02/2011 61 0.920 -0.2 *Denotes significance at 95% confidence level, LSC for AP Spine = 0.022 g/cm2, LSC for Total Hip = 0.027 g/cm2 Clinical Information Provided by Patient: Is being treated for osteoporosis Has used the following medications: Evista (i.e. raloxifene), Vitamin D, Calcium Has the following medical conditions: Cancer Patient maximum height was 65.5 Menopause Age: 53 Drinks caffeinated beverages Onset of menses at age 11 Number of children 3 Impression: The patient has low bone mass, based on the Right Femoral Neck T-s
--- NOTE | ~2020-04-22 | MM_ITS ---
EXAMINATION: MM screening jaylan BI w delbert HISTORY: Screening TECHNIQUE: Craniocaudal and mediolateral oblique 3-D tomosynthesis images were obtained and synthetic 2-D images were generated. CAD analysis was submitted and interpreted. COMPARISON: Comparison to multiple prior studies sequentially, with oldest reviewed study dated 11/05. BREAST PARENCHYMAL COMPOSITION: The breasts are heterogeneously dense, which may obscure small masses . FINDINGS: There is no evidence of suspicious mass, calcification, or architectural distortion to sugg est malignancy in either breast. There has been no suspicious interval change. IMPRESSION: 1. No mammographic evidence of malignancy. 2. Recommend routine screening mammography in one year. BI-RADS Category 1: Negative Reviewed, dictated and finalized at location A. LER AND REAMER
== END 2020-04-22 09:02 | disposition home or self-care (01) ==
LOC: ANHIMG 09:03
PROVIDERS: PCP Family Medicine; Visit Provider Nurse Practitioner Obstetrics & Gynecology
DX: Z12.31 Encounter for screening mammogram for malignant neoplasm of breast (principal); Z78.0 Asymptomatic menopausal state; M85.851 Other specified disorders of bone density and structure, right thigh
CPT/HCPCS: 77063; 77067; 77080

== ENCOUNTER 2020-07-12 12:38 | Outpatient (CLI) | payer MEDICARE, SELFPAY ==
[2020-07-12 13:04] LABS: Basophils Percent Auto 0.4 % (0.2-1.2); Eosinophils Absolute Auto 0.1 K/mm3 (0-0.3); Eosinophils Percent Auto 1.4 % (0-4.4); Hemoglobin 12.9 g/dL (12.0-15.0); Immature Granulocyte Absolute 0.04 K/mm3 (0.00-0.031); Immature Granulocyte Percent A 0.6 % (0-0.5); Lymphocytes Percent Auto 26.3 % (18.3-44.2); Mean Corpuscular HGB Conc 33.1 g/dl (32-36); Mean Corpuscular Hemoglobin 31.3 pg (26-34); Mean Corpuscular Volume 94.7 fl (80-100); Mean Platelet Volume 10.4 fl (7.4-10.4); Monocytes Absolute Auto 0.5 K/mm3 (0.1-0.6); Monocytes Percent Auto 6.8 % (2.6-8.5); Neutrophils Absolute Auto 4.7 K/mm3 (1.3-6.7); Neutrophils Percent Auto 64.5 % (45.5-73.1); Platelet Count Result 214 k/mm3 (150-375); Red Blood Count 4.12 M/mm3 (4.2-5.4); Red Cell Distribution Width 12.7 % (11.5-14.5); White Blood Count 7.2 K/mm3 (4.5-10.0)
[2020-07-12 16:47] LABS: Alanine Aminotransferase 19 U/L (4-35); Albumin Level 4.1 g/dL (3.5-5.1); Alkaline Phosphatase 55 U/L (38-126); Anion Gap 7 mmol/L (8-16); Aspartate Amino Transferase 33 U/L (14-36); Bilirubin,Total 0.4 mg/dL (0.2-1.3); Blood Urea Nitrogen 17 mg/dL (7-17); Calcium 9.7 mg/dL (8.4-10.2); Carbon Dioxide 27 mmol/L (22-30); Chloride 107 mmol/L (98-107); Estimated Glomerular Filt Rate > 60; Glucose 97 mg/dL (65-105); Potassium 4.1 mmol/L (3.4-5.0); Sodium 141 mmol/L (137-145)
[2020-07-12 17:16] LABS: Carcinoembryonic Antigen 1.8 ng/mL (0.0-3.0)
== END 2020-07-12 12:39 | disposition home or self-care (01) ==
PROVIDERS: PCP Family Medicine; Visit Provider Internal Medicine Hematology & Oncology
DX: C18.2 Malignant neoplasm of ascending colon (principal)
CPT/HCPCS: 36415; 80053; 82378; 85025

== ENCOUNTER 2020-11-14 08:40 | Outpatient (CLI) | payer MEDICARE, SELFPAY ==
[2020-11-14 09:11] LABS: Basophils Percent Auto 0.7 % (0.2-1.2); Eosinophils Absolute Auto 0.2 K/mm3 (0-0.3); Eosinophils Percent Auto 4.4 % (0-4.4); Hematocrit 40.5 % (37.0-47.0); Hemoglobin 13.1 g/dL (12.0-15.0); Immature Granulocyte Absolute 0.03 K/mm3 (0.00-0.031); Immature Granulocyte Percent A 0.6 % (0-0.5); Lymphocytes Absolute Auto 1.76 K/mm3 (0.9-3.2); Lymphocytes Percent Auto 32.5 % (18.3-44.2); Mean Corpuscular HGB Conc 32.3 g/dl (32-36); Mean Corpuscular Volume 95.7 fl (80-100); Mean Platelet Volume 10.5 fl (7.4-10.4); Monocytes Absolute Auto 0.5 K/mm3 (0.1-0.6); Monocytes Percent Auto 8.9 % (2.6-8.5); Neutrophils Absolute Auto 2.9 K/mm3 (1.3-6.7); Neutrophils Percent Auto 52.9 % (45.5-73.1); Platelet Count Result 192 k/mm3 (150-375); Red Blood Count 4.23 M/mm3 (4.2-5.4); Red Cell Distribution Width 12.8 % (11.5-14.5); White Blood Count 5.4 K/mm3 (4.5-10.0)
[2020-11-14 13:22] LABS: Alanine Aminotransferase 18 U/L (4-35); Albumin Level 4.1 g/dL (3.5-5.1); Alkaline Phosphatase 61 U/L (38-126); Anion Gap 5 mmol/L (8-16); Aspartate Amino Transferase 53 U/L (14-36); Bilirubin,Total 0.6 mg/dL (0.2-1.3); Blood Urea Nitrogen 21 mg/dL (7-17); Calcium 8.9 mg/dL (8.4-10.2); Carbon Dioxide 28 mmol/L (22-30); Chloride 109 mmol/L (98-107); Estimated Glomerular Filt Rate > 60; Glucose 97 mg/dL (65-110); Potassium 4.4 mmol/L (3.4-5.0); Sodium 142 mmol/L (137-145)
[2020-11-14 13:49] LABS: Carcinoembryonic Antigen 2.9 ng/mL (0.0-3.0)
== END 2020-11-14 08:41 | disposition home or self-care (01) ==
LOC: ANHLAB 08:46
PROVIDERS: PCP Family Medicine; Visit Provider Internal Medicine Hematology & Oncology
DX: C18.2 Malignant neoplasm of ascending colon (principal)
CPT/HCPCS: 36415; 80053; 82378; 85025

== ENCOUNTER 2020-12-18 01:45 | Day surgery (SDC) | payer MEDICARE, SELFPAY ==
[2020-11-29 12:25] VITALS: BMI 23.6
--- NOTE | 2020-12-17 09:52 | WPDANESEPPF ---
Anes - Initial Pre Proc Eval Procedure: Operation Date: 12/18/20 08:30 Proposed Procedures p Esophagogastroduodenoscopy & Screening Colonoscopy - Tulio Malin MD Date/Time: 12/17/20 09:52 Surgeon: Tulio Malin MD Pre Op Diagnosis: dyspepsia, hx of colon ca Patient Data Age: 70 Gender: F Height: 1.6 m Weight: 60.5 kg Allergies Allergy/AdvReac Type Severity Reaction Status Date / Time No Known Allergies Allergy Verified 12/18/20 07:44 Home Medications Medication Instructions Recorded Confirmed Type raloxifene 60 mg tablet 60 mg PO DAILY 09/04/19 12/17/20 History calcium carbonate [Calcium 500] 500 mg PO QAM 11/24/19 12/17/20 History cholecalciferol (vitamin D3) 25 mcg PO DAILY 11/24/19 12/17/20 History [Vitamin D3] ascorbic acid (vitamin C) [Vitamin 500 mg PO DAILY 12/20/19 12/17/20 History C] cyanocobalamin (vitamin B-12) 1,000 mcg PO DAILY 12/20/19 12/17/20 History pravastatin 10 mg tablet See Rx Instructions .ROUTE 09/04/20 12/17/20 Rx .COMPLEX #90 tablet multivit with min-folic acid 2 tablet PO DAILY 11/29/20 12/17/20 History [Women's Multivitamin Gummies] Patient hx anesthesia problems: none Family hx anesthesia problems: none Results Review: All pre-operative results and documents have been reviewed as part of the pre-operative evaluation. [facility] Past Medical History Medical History (Updated 12/18/20 @ 07:51 by Christiano Russo DO) Abdominal pain Abnormal colonoscopy 10.. Amputation of left index finger 7.7.20 Colon polyps 10.9.20 colonoscopy colon polyp.reoeat in 5 years Encounter for surgical aftercare following surgery on the digestive system Genetic testing 05.20.20: invitae genetic testing negative Mixed hyperlipidemia borderline - no meds Postoperative ileus Surgical History Surgical History History of x3 History of colonoscopy S/P right colectomy dx: colon cancer 11.4.20 Hand access laparoscopic right colectomy with ileotransverse anastomosis Family History Family History Mother Breast cancer Father Pancreatic cancer Emphysema lung Social History Social History (Updated 12/17/20 @ 08:53 by Sydney Chapin [facility]) Alcohol intake: current Drinks per week: 12 Alcohol use details: WINE/BEER Substance use: current Substance use type: marijuana Other substance usage details: edibles Last use: 11/16/20 Living arrangements: with family Gender identity (if verbalized by the patient): Female Spiritual care concerns: No Agree to blood products: Yes Anes - Eval Final PreProcedure Day of Procedure 12/17/20 09:52 Patient weight: normal Heart: regular rate and rhythm Lungs: clear to auscultation and normal air movement Airway: Mallampati scale class II Neurological: alert and oriented Last oral intake: >/= 8 hours ASA classification: II Emergent: no Anesthetic plan: proceed Anesthesia type and monitoring: general GIVS and standard monitoring Results Review: All pre-operative results and documents have been reviewed as part of the pre-operative evaluation. Informed Consent: The patient's anesthetic plan and its attendant risks and benefits were discussed with the patient/family/POA. Questions were solicited and answers provided to the satisfaction of the patient/family/POA.
[2020-12-18 07:45] VITALS: BP 143/65; PULSE 88; RESP 18; TEMP 36.5; O2SAT 97
[2020-12-18] MEDS: LACTATED RINGERS 1,000 ML 150 ML IV CONT (07:58)
--- NOTE | 2020-12-18 08:25 | PM.HPGS ---
History of Present Illness History of Present Illness Consent: Risks, benefits, and alternatives have been discussed and questions answered. Patient agrees to proceed with procedure. Chief complaint: dyspepsia, hx of colon ca Narrative: Maine Cook is a 70 year old female here for egd and colonoscopy. She had ascending colon cancer after routine screening colonoscopy, had right hemicolectomy by Dr Hernandez with negative lymph nodes, did not require chemotherapy. She developed epigastric discomfort and fullness after recovery from surgery, denies dysphagia, nausea or GIB, she took omeprazole for ~ 3 months and now asymptomatic but never had EGD. Review of Systems Constitutional: Constitutional: Denies headache(s) and Denies weakness Eyes: Eyes: Denies blurry vision ENT: Reports Normal hearing present, Denies headache(s) and Denies neck pain Cardiovascular: Cardiovascular: Denies chest pain and Denies dyspnea Respiratory: Respiratory: Denies dyspnea Gastrointestinal: Gastrointestinal: Reports no additional gastrointestinal complaints Genitourinary: Genitourinary: Denies dysuria Musculoskeletal: Musculoskeletal: Denies neck pain Integumentary/Breasts: Skin/Breast: Denies dry skin Neurologic: Reports Normal hearing present, Denies headache(s) and Denies weakness Psychiatric: Psychiatric: Denies anxiety Endocrine: Endocrine: Denies change in body appearance Hematologic/Lymphatic: Hematologic/Lymphatic: Denies easy bleeding Allergic/Immunologic: Allergic/Immunologic: Denies urticaria PMFSH Past Medical History Medical History (Updated 12/18/20 @ 08:27 by Tulio Malin MD) Abdominal pain Abnormal colonoscopy 10.9.20 Amputation of left index finger 7.7.20 Colon polyps 10.9.20 colonoscopy colon polyp.reoeat in 5 years Dyspepsia Encounter for surgical aftercare following surgery on the digestive system Genetic testing 3.21: invitae genetic testing negative Mixed hyperlipidemia borderline - no meds Postoperative ileus Surgical History Surgical History History of x3 History of colonoscopy S/P right colectomy dx: colon cancer 11.4.20 Hand access laparoscopic right colectomy with ileotransverse anastomosis Family History Family History Mother Breast cancer Father Pancreatic cancer Emphysema lung Social History Social History (Updated 12/17/20 @ 08:53 by Sydney Chapin CMA) Alcohol intake: current Drinks per week: 12 Alcohol use details: WINE/BEER Substance use: current Substance use type: marijuana Other substance usage details: edibles Last use: 11/16/20 Living arrangements: with family Gender identity (if verbalized by the patient): Female Spiritual care concerns: No Agree to blood products: Yes Meds Home Medications and Allergies Home Medications Medication Instructions Recorded Confirmed Type raloxifene 60 mg tablet 60 mg PO DAILY 09/04/19 12/17/20 History calcium carbonate [Calcium 500] 500 mg PO QAM 11/24/19 12/17/20 History cholecalciferol (vitamin D3) 25 mcg PO DAILY 11/24/19 12/17/20 History [Vitamin D3] ascorbic acid (vitamin C) [Vitamin 500 mg PO DAILY 12/20/19 12/17/20 History C] cyanocobalamin (vitamin B-12) 1,000 mcg PO DAILY 12/20/19 12/17/20 History pravastatin 10 mg tablet See Rx Instructions .ROUTE 09/04/20 12/17/20 Rx .COMPLEX #90 tablet multivit with min-folic acid 2 tablet PO DAILY 11/29/20 12/17/20 History [Women's Multivitamin Gummies] Allergies Allergy/AdvReac Type Severity Reaction Status Date / Time No Known Allergies Allergy Verified 12/18/20 07:44 Vital Signs Vital Signs - 24 hr 12/18/20 07:45 Temperature 97.7 F Pulse Rate 88 Respiratory Rate 18 Blood Pressure 143/65 H Pulse Oximetry 97 Exam Const: General: comfortable and no acute distress H
[2020-12-18 08:51] VITALS: BP 103/61; PULSE 87; RESP 18; O2SAT 97
[2020-12-18 09:01] VITALS: BP 103/67; PULSE 82; RESP 18; O2SAT 99
[2020-12-18 09:11] VITALS: BP 107/67; PULSE 79; RESP 18; O2SAT 99
== END 2020-12-18 09:33 | disposition home or self-care (01) ==
PROVIDERS: PCP Family Medicine; Visit Provider Internal Medicine Gastroenterology
PROC: 0DJ08ZZ Inspection of Upper Intestinal Tract, Via Natural or Artificial Opening Endoscopic (ICD-10-PCS; CPT 43235; principal; 2020-12-18 08:30)
DX: Z12.11 Encounter for screening for malignant neoplasm of colon (principal); Z85.038 Personal history of other malignant neoplasm of large intestine; Z98.0 Intestinal bypass and anastomosis status; K64.8 Other hemorrhoids; D12.4 Benign neoplasm of descending colon; K29.50 Unspecified chronic gastritis without bleeding; K30 Functional dyspepsia; E78.2 Mixed hyperlipidemia; F12.90 Cannabis use, unspecified, uncomplicated
CPT/HCPCS: 45380; 43239; 87081; 88305; J2001; J2704; J7120

== ENCOUNTER 2021-01-20 07:59 | Outpatient (CLI) | payer MEDICARE, SELFPAY ==
--- NOTE | ~2021-01-20 | US_ITS ---
US arterial ankle brachial ind INDICATION: Atherosclerosis of the aorta TECHNIQUE: Segmental pressures and plethysmographic and Doppler waveforms of the brachial and lower e xtremity arteries were obtained. COMPARISON: None. FINDINGS: Right and left brachial artery pressures of 102 mm Hg and 116 mm Hg, respectively, are concordant (no rmal difference <= 30 mmHg). The right ankle-brachial index (AMARA) is 1.27 (normal >= 0.9-1.0). The right great toe-brachial index (TBI) is 0.59 (normal >= 0.60). The left AMARA is 1.3. The left TBI is 1.03. IMPRESSION: 1. Normal bilateral ankle-brachial indices. Reviewed, dictated and finalized at location B. CARE INTERVIEWER
== END 2021-01-20 08:00 | disposition home or self-care (01) ==
LOC: ANHIMG 08:03
PROVIDERS: PCP Family Medicine; Visit Provider Family Medicine
DX: I73.9 Peripheral vascular disease, unspecified (principal); R25.2 Cramp and spasm; I70.0 Atherosclerosis of aorta
CPT/HCPCS: 93922

== ENCOUNTER 2021-04-30 08:55 | Outpatient (CLI) | payer MEDICARE, SELFPAY ==
--- NOTE | ~2021-04-30 | CT_ITS ---
EXAMINATION: CT abdomen pelvis w con INDICATION: Malignant neoplasm of the ascending colon TECHNIQUE: Computed tomographic images of the abdomen and pelvis were obtained after the administrati on of 120 cc of Omnipaque 350 intravenous contrast. The dose-length product (DLP) was 671.96 mGy-cm. Automated exposure control and iterative reconstruction technique were employed. COMPARISON: 04/16/2020 FINDINGS: Minimal dependent atelectasis is present in the lung bases. The heart size is normal. Cysts of the liver measure up to 2 cm in the left hepatic lobe. The spleen, pancreas, gallbladder, and adr enal glands are normal. The kidneys are unremarkable. There are changes of right hemicolectomy. No re sidual or recurrent mass is identified. No pathologically enlarged abdominal or pelvic lymph nodes ar e identified. There is no free intraperitoneal gas or evidence of bowel obstruction. A large volume o f colonic stool is present. IMPRESSION: 1. Changes of right hemicolectomy without residual/recurrent mass or metastatic disease identified. 2. Constipation. Reviewed, dictated and finalized at location B. R ANALYST
[2021-04-30 09:38] LABS: Estimated Glomerular Filt Rate > 60
== END 2021-04-30 08:56 | disposition home or self-care (01) ==
PROVIDERS: PCP Family Medicine; Visit Provider Internal Medicine Hematology & Oncology
DX: C18.2 Malignant neoplasm of ascending colon (principal); K59.00 Constipation, unspecified
CPT/HCPCS: 74177; Q9967

== ENCOUNTER 2021-05-05 08:58 | Outpatient (CLI) | payer MEDICARE, SELFPAY ==
--- NOTE | ~2021-05-05 | MM_ITS ---
EXAMINATION: MM screening jaylan BI w delbert HISTORY: Screening mammogram, family history of breast cancer in her mother. TECHNIQUE: Craniocaudal and mediolateral oblique 3-D tomosynthesis images were obtained and synthetic 2-D images were generated. CAD analysis was submitted and interpreted. COMPARISON: Prior mammograms dating back to 11/02/2013 BREAST PARENCHYMAL COMPOSITION: There are scattered areas of fibroglandular density. FINDINGS: There is no evidence of suspicious mass, calcification, or architectural distortion to sugg est malignancy in either breast. There has been no suspicious interval change. IMPRESSION: 1. No mammographic evidence of malignancy. 2. Recommend routine screening mammography in one year. BI-RADS Category 1: Negative Reviewed, dictated and finalized at location A.
== END 2021-05-05 08:59 | disposition home or self-care (01) ==
LOC: ANHIMG 09:00
PROVIDERS: PCP Family Medicine; Visit Provider Nurse Practitioner Obstetrics & Gynecology
DX: Z12.31 Encounter for screening mammogram for malignant neoplasm of breast (principal)
CPT/HCPCS: 77063; 77067

== ENCOUNTER 2021-08-28 11:33 | Outpatient (CLI) | payer MEDICARE, SELFPAY ==
[2021-08-28 11:55] LABS: Basophils Absolute Auto 0.1 K/mm3 (0.0-0.1); Basophils Percent Auto 1.1 % (0.2-1.2); Eosinophils Absolute Auto 0.2 K/mm3 (0-0.3); Eosinophils Percent Auto 2.3 % (0-4.4); Hematocrit 45.2 % (37.0-47.0); Hemoglobin 14.7 g/dL (12.0-15.0); Immature Granulocyte Absolute 0.02 K/mm3 (0.00-0.031); Immature Granulocyte Percent A 0.3 % (0-0.5); Lymphocytes Absolute Auto 1.73 K/mm3 (0.9-3.2); Lymphocytes Percent Auto 26.6 % (18.3-44.2); Mean Corpuscular HGB Conc 32.5 g/dl (32-36); Mean Corpuscular Hemoglobin 31.2 pg (26-34); Mean Platelet Volume 10.4 fl (7.4-10.4); Monocytes Absolute Auto 0.5 K/mm3 (0.1-0.6); Monocytes Percent Auto 7.4 % (2.6-8.5); Neutrophils Absolute Auto 4.1 K/mm3 (1.3-6.7); Neutrophils Percent Auto 62.3 % (45.5-73.1); Platelet Count Result 235 k/mm3 (150-375); Red Blood Count 4.71 M/mm3 (4.2-5.4); Red Cell Distribution Width 12.6 % (11.5-14.5); White Blood Count 6.5 K/mm3 (4.5-10.0)
[2021-08-28 18:18] LABS: Alanine Aminotransferase 21 U/L (6-35); Albumin Level 4.5 g/dL (3.5-5.1); Alkaline Phosphatase 67 U/L (38-126); Anion Gap 7 mmol/L (8-16); Aspartate Amino Transferase 37 U/L (14-36); Bilirubin,Total 0.6 mg/dL (0.2-1.3); Blood Urea Nitrogen 21 mg/dL (7-17); Calcium 9.1 mg/dL (8.4-10.2); Carbon Dioxide 25 mmol/L (22-30); Chloride 106 mmol/L (98-107); Estimated Glomerular Filt Rate 55; Glucose 95 mg/dL (65-110); Potassium 4.5 mmol/L (3.4-5.0); Sodium 138 mmol/L (137-145)
[2021-08-28 18:47] LABS: Carcinoembryonic Antigen 2.7 ng/mL (0.0-3.0)
== END 2021-08-28 11:34 | disposition home or self-care (01) ==
LOC: ANHLAB 11:37
PROVIDERS: PCP Family Medicine; Visit Provider Internal Medicine Hematology & Oncology
DX: C18.2 Malignant neoplasm of ascending colon (principal)
CPT/HCPCS: 36415; 80053; 82378; 85025

== ENCOUNTER 2021-12-31 07:30 | Outpatient (CLI) | payer MEDICARE, SELFPAY ==
--- NOTE | ~2021-12-31 | CT_ITS ---
EXAMINATION: CT abdomen pelvis w con DATE: 12/31/2021 07:58 INDICATION: Restaging of colon carcinoma TECHNIQUE: Computed tomography (CT) of the abdomen and pelvis was performed with 100 CC Omnipaque 350 intravenous contrast. Automated exposure control and iterative reconstruction technique were employe d. Exam dose: 414.87 mGy-cm total exam DLP. COMPARISON: 04/30/2021 CT abdomen pelvis FINDINGS: There is minimal atelectasis at the lung bases. Heart size is within normal range. No peric ardial or pleural effusion. There are multiple cysts scattered throughout the liver, measuring up to approximately 2 cm maximal d imension. No suspicious hepatic space-occupying mass lesion is evident. The gallbladder is unremarkable. No bile duct or pancreatic duct dilatation. No pancreatic mass lesio n or calcification. Normal splenic size. Normal morphology of the adrenal glands. 4 mm upper pole right renal cyst approximately 1.4 cm left parapelvic renal cysts. No urinary tract c alculus or hydroureteronephrosis. Line there is atherosclerotic calcification but normal caliber of t he abdominal aorta. No intraperitoneal or retroperitoneal or pelvic mass lesion or adenopathy or asci blanche. Status post right colectomy. Some liquid stool is noted in the proximal colon. No bowel obstruction, bowel wall thickening, pneumatosis or intraperitoneal free air is detected. The uterus, adnexal areas and urinary bladder are unremarkable. No suspicious osteolytic or osteoblastic lesions are noted. IMPRESSION: Status post right colectomy for colon carcinoma; no recurrent or metastatic disease is d etected Multiple hepatic cysts Renal cysts Reviewed, dictated and finalized at Location A. Reviewed, dictated and finalized at location A. S SECRETARY IMPRESSION: Status post right colectomy for colon carcinoma; no recurrent or m etastatic disease is detected Multiple hepatic cysts Renal cysts
== END 2021-12-31 07:31 | disposition home or self-care (01) ==
PROVIDERS: PCP Family Medicine; Visit Provider Internal Medicine Hematology & Oncology
DX: C18.2 Malignant neoplasm of ascending colon (principal); Z90.49 Acquired absence of other specified parts of digestive tract; K76.89 Other specified diseases of liver; N28.1 Cyst of kidney, acquired
CPT/HCPCS: 74177; Q9967

== ENCOUNTER 2022-01-07 09:50 | Outpatient (CLI) | payer MEDICARE, SELFPAY ==
[2022-01-07 10:05] LABS: Basophils Percent Auto 0.6 % (0.2-1.2); Eosinophils Absolute Auto 0.2 K/mm3 (0-0.3); Eosinophils Percent Auto 2.9 % (0-4.4); Hematocrit 42.3 % (37.0-47.0); Hemoglobin 13.8 g/dL (12.0-15.0); Immature Granulocyte Absolute 0.04 K/mm3 (0.00-0.031); Immature Granulocyte Percent A 0.6 % (0-0.5); Lymphocytes Percent Auto 30.5 % (18.3-44.2); Mean Corpuscular HGB Conc 32.6 g/dl (32-36); Mean Corpuscular Hemoglobin 31.6 pg (26-34); Mean Corpuscular Volume 96.8 fl (80-100); Mean Platelet Volume 10.1 fl (7.4-10.4); Monocytes Absolute Auto 0.5 K/mm3 (0.1-0.6); Monocytes Percent Auto 6.8 % (2.6-8.5); Neutrophils Percent Auto 58.6 % (45.5-73.1); Platelet Count Result 242 k/mm3 (150-375); Red Blood Count 4.37 M/mm3 (4.2-5.4); Red Cell Distribution Width 12.5 % (11.5-14.5); White Blood Count 6.9 K/mm3 (4.5-10.0)
[2022-01-07 10:08] LABS: Blood Urea Nitrogen 19 mg/dL (8-26); Carbon Dioxide 27 mmol/L (22-30); Chloride 106 mmol/L (98-109); Estimated Glomerular Filt Rate > 60; Glucose 107 mg/dL (70-105); Ionized Calcium (POC) 1.17 mmol/L (1.11-1.31); Potassium 4.5 mmol/L (3.5-4.9); Sodium 142 mmol/L (138-146)
[2022-01-07 13:03] LABS: Alanine Aminotransferase 24 U/L (6-35); Albumin Level 4.4 g/dL (3.5-5.1); Alkaline Phosphatase 95 U/L (38-126); Anion Gap 9 mmol/L (8-16); Aspartate Amino Transferase 36 U/L (14-36); Bilirubin,Total 0.4 mg/dL (0.2-1.3); Blood Urea Nitrogen 20 mg/dL (7-17); Calcium 8.8 mg/dL (8.4-10.2); Carbon Dioxide 25 mmol/L (22-30); Chloride 106 mmol/L (98-107); Estimated Glomerular Filt Rate > 60; Glucose 103 mg/dL (65-110); Potassium 4.5 mmol/L (3.4-5.0); Sodium 140 mmol/L (137-145)
== END 2022-01-07 09:51 | disposition home or self-care (01) ==
LOC: ANHLAB 09:51
PROVIDERS: PCP Family Medicine; Visit Provider Internal Medicine Hematology & Oncology
DX: C18.2 Malignant neoplasm of ascending colon (principal)
CPT/HCPCS: 36415; 80047; 80053; 85025

== ENCOUNTER → 2022-03-10 12:01 | Outpatient (CLI) | payer MEDICARE, SELFPAY ==
--- NOTE | ~2022-03-10 | XR_ITS ---
XR hand RT min 3V DATE: 03/10/2022 12:12 INDICATION: Metacarpophalangeal joint swelling, stiffness beginning 01/30/2022 TECHNIQUE: 3 views right hand COMPARISON: None FINDINGS: There is narrowing at the first and third metacarpophalangeal joints and multiple interphal angeal joints, with spurring noted at some of the interphalangeal joints, particularly at the fifth d igit distal interphalangeal joint, consistent with osteoarthritis. No erosive change is noted. No fracture, dislocation, periosteal reaction or bone destruction. No cho ndrocalcinosis. IMPRESSION: Polyarticular osteoarthritis Reviewed, dictated and finalized at location L. HANDISE HANDLER
== END ==
PROVIDERS: PCP Family Medicine; Visit Provider Family Medicine
DX: S69.91XA Unspecified injury of right wrist, hand and finger(s), initial encounter (principal); M15.9 Polyosteoarthritis, unspecified; T14.90XA Injury, unspecified, initial encounter
CPT/HCPCS: 73130

== ENCOUNTER 2022-05-05 09:24 | Outpatient (CLI) | payer MEDICARE, SELFPAY ==
[2022-05-05 09:42] LABS: Basophils Absolute Auto 0.1 K/mm3 (0.0-0.1); Basophils Percent Auto 0.7 % (0.2-1.2); Eosinophils Absolute Auto 0.2 K/mm3 (0-0.3); Hematocrit 42.3 % (37.0-47.0); Hemoglobin 13.7 g/dL (12.0-15.0); Immature Granulocyte Absolute 0.05 K/mm3 (0.00-0.031); Immature Granulocyte Percent A 0.6 % (0-0.5); Lymphocytes Absolute Auto 1.79 K/mm3 (0.9-3.2); Lymphocytes Percent Auto 19.9 % (18.3-44.2); Mean Corpuscular HGB Conc 32.4 g/dl (32-36); Mean Corpuscular Hemoglobin 31.1 pg (26-34); Mean Corpuscular Volume 96.1 fl (80-100); Mean Platelet Volume 10.4 fl (7.4-10.4); Monocytes Absolute Auto 0.6 K/mm3 (0.1-0.6); Monocytes Percent Auto 6.3 % (2.6-8.5); Neutrophils Absolute Auto 6.3 K/mm3 (1.3-6.7); Neutrophils Percent Auto 70.5 % (45.5-73.1); Platelet Count Result 245 k/mm3 (150-375); Red Cell Distribution Width 12.9 % (11.5-14.5)
[2022-05-05 12:51] LABS: Alanine Aminotransferase 23 U/L (6-35); Albumin Level 4.3 g/dL (3.5-5.1); Alkaline Phosphatase 68 U/L (38-126); Anion Gap 5 mmol/L (8-16); Aspartate Amino Transferase 32 U/L (14-36); Bilirubin,Total 0.7 mg/dL (0.2-1.3); Blood Urea Nitrogen 20 mg/dL (7-17); Calcium 8.9 mg/dL (8.4-10.2); Carbon Dioxide 28 mmol/L (22-30); Chloride 107 mmol/L (98-107); Estimated Glomerular Filt Rate > 60; Glucose 99 mg/dL (65-110); Potassium 4.3 mmol/L (3.4-5.0); Sodium 140 mmol/L (137-145)
== END 2022-05-05 09:25 | disposition home or self-care (01) ==
LOC: ANHLAB 09:26
PROVIDERS: PCP Family Medicine; Visit Provider Internal Medicine Hematology & Oncology
DX: C18.2 Malignant neoplasm of ascending colon (principal)
CPT/HCPCS: 36415; 80053; 82378; 85025

== ENCOUNTER 2022-07-02 13:56 | Outpatient (CLI) | payer MEDICARE, SELFPAY ==
--- NOTE | ~2022-07-02 | MM_ITS ---
EXAMINATION: MM screening jaylan BI w delbert HISTORY: Screening mammogram TECHNIQUE: Craniocaudal and mediolateral oblique 3-D tomosynthesis images were obtained and synthetic 2-D images were generated. CAD analysis was submitted and interpreted. COMPARISON: 05/05/2021, 04/22/2020, 04/21/2019 BREAST PARENCHYMAL COMPOSITION:The breasts are heterogeneously dense, which may obscure small masses. FINDINGS: No suspicious mass, calcification, or architectural distortion are identified in either samia ast to suggest malignancy. There has been no suspicious interval change. IMPRESSION: No mammographic evidence of malignancy. Recommend routine screening mammography in one year. BI-RADS Category 1: Negative Reviewed, dictated and finalized at location .
--- NOTE | ~2022-07-02 | DEXA_ITS ---
Bone Density Report Name: ORLANDO WILSON Age: 72 Sex: Female Ethnicity: White Date of : 1950 Indication: monitoring treatment; cancer; postmenopausal Referring Provider: PATTIE, JEMAL Drake Study: Bone densitometry was performed. Exam Date: July 02, 2022 Accession number: [id number] Bone Density: Region BMD T-score Z-score Classification AP Spine(L1-L4) 0.990 -0.5 1.8 Normal Femoral Neck (Left) 0.778 -0.6 1.3 Normal Total Hip (Left) 0.937 0.0 1.6 Normal Femoral Neck (Right) 0.732 -1.1 0.9 Osteopenia Total Hip (Right) 0.853 -0.7 0.9 Normal Total Hip Mean 0.895 -0.4 1.3 Normal World Health Organization criteria for BMD impression classify patients as: Normal (T-score at or above -1.0), Osteopenia (T-score between -1.0 and -2.5), or Osteoporosis (T-score at or below -2.5). 10-year Fracture Risk: FRAX not reported because: Treated for osteoporosis Previous Exams: Region Exam Age BMD T-score BMD Change BMD Change Date g/cm2 vs Baseline vs Previous AP Spine (L1-L4) 07/02/2022 72 0.990 -0.5 0.045 (4.8%)* 0.009 (0.9%) 04/22/2020 69 0.981 -0.6 0.036 (3.8%)* 0.032 (3.3%)* 04/19/2018 67 0.949 -0.9 0.005 (0.5%) -0.001 (-0.1%) 12/03/2015 65 0.950 -0.9 0.005 (0.6%) 0.005 (0.6%) 11/02/2013 63 0.945 -0.9 Total Hip(Left) 07/02/2022 72 0.937 0.0 0.018 (2.0%) 0.027 (3.0%) 04/22/2020 69 0.910 -0.3 -0.009 (-1.0%) 0.005 (0.5%) 04/19/2018 67 0.905 -0.3 -0.013 (-1.5%) 0.026 (2.9%) 12/03/2015 65 0.879 -0.5 -0.039 (-4.3%) -0.039 (-4.3%) 11/02/2013 63 0.919 -0.2 Total Hip(Right) 07/02/2022 72 0.853 -0.7 -0.020 (-2.3%) 0.027 (3.3%)* 04/22/2020 69 0.825 -1.0 -0.048 (-5.5%) -0.055 (-6.2%) 04/19/2018 67 0.880 -0.5 0.007 (0.8%) 0.027 (3.2%) 12/03/2015 65 0.853 -0.7 -0.020 (-2.3%) -0.020 (-2.3%) 11/02/2013 63 0.873 -0.6 *Denotes significance at 95% confidence level, LSC for AP Spine = 0.022 g/cm2, LSC for Total Hip = 0.027 g/cm2 Clinical Information Provided by Patient: Is being treated for osteoporosis Has used the following medications: Evista (i.e. raloxifene), Vitamin D, Calcium Has the following medical conditions: Cancer Patient maximum height was 62.5 Menopause Age: 53 Drinks caffeinated beverages Onset of menses at age 11 Number of children 3 Impression: The patient has low bone mass, based on the Right Femoral Ne
== END 2022-07-02 13:57 | disposition home or self-care (01) ==
LOC: ANHIMG 13:58
PROVIDERS: PCP Family Medicine; Visit Provider Nurse Practitioner Obstetrics & Gynecology
DX: Z12.31 Encounter for screening mammogram for malignant neoplasm of breast (principal); M85.80 Other specified disorders of bone density and structure, unspecified site; M85.851 Other specified disorders of bone density and structure, right thigh
CPT/HCPCS: 77063; 77067; 77080

== ENCOUNTER → 2022-10-07 14:12 | Outpatient (CLI) | payer MEDICARE, SELFPAY ==
--- NOTE | ~2022-10-07 | XR_ITS ---
EXAMINATION: XR foot RT min 3V DATE: 10/07/2022 14:29 INDICATION: Right foot pain TECHNIQUE: Dorsoplantar, lateral, and 2 oblique views of the right foot were obtained. COMPARISON: 11/04/2016 FINDINGS: There is no fracture. There is moderate osteoarthritis of the first metatarsophalangeal samir nt and in multiple interphalangeal joints. An old healed fracture of the fifth proximal phalanx is no audrey. There are posterior and plantar calcaneal enthesophytes. The soft tissues are unremarkable. IMPRESSION: 1. Osteoarthritis without acute osseous abnormality. Reviewed, dictated and finalized at location B.
== END ==
PROVIDERS: PCP Family Medicine; Visit Provider Nurse Practitioner Family
DX: M19.071 Primary osteoarthritis, right ankle and foot (principal); M79.671 Pain in right foot
CPT/HCPCS: 73630

== ENCOUNTER 2022-11-09 08:17 | Outpatient (CLI) | payer MEDICARE, SELFPAY ==
[2022-11-09 08:38] LABS: Basophils Percent Auto 0.6 % (0.2-1.2); Eosinophils Absolute Auto 0.2 K/mm3 (0-0.3); Hematocrit 43.4 % (37.0-47.0); Hemoglobin 13.9 g/dL (12.0-15.0); Immature Granulocyte Absolute 0.06 K/mm3 (0.00-0.031); Immature Granulocyte Percent A 0.9 % (0-0.5); Lymphocytes Absolute Auto 1.85 K/mm3 (0.9-3.2); Lymphocytes Percent Auto 26.7 % (18.3-44.2); Mean Corpuscular Volume 96.9 fl (80-100); Mean Platelet Volume 10.2 fl (7.4-10.4); Monocytes Absolute Auto 0.6 K/mm3 (0.1-0.6); Monocytes Percent Auto 7.9 % (2.6-8.5); Neutrophils Absolute Auto 4.2 K/mm3 (1.3-6.7); Neutrophils Percent Auto 60.9 % (45.5-73.1); Platelet Count Result 222 k/mm3 (150-375); Red Blood Count 4.48 M/mm3 (4.2-5.4); Red Cell Distribution Width 12.6 % (11.5-14.5); White Blood Count 6.9 K/mm3 (4.5-10.0)
[2022-11-09 12:15] LABS: Alanine Aminotransferase 22 U/L (6-35); Albumin Level 4.3 g/dL (3.5-5.1); Alkaline Phosphatase 71 U/L (38-126); Anion Gap 6 mmol/L (8-16); Aspartate Amino Transferase 34 U/L (14-36); Bilirubin,Total 0.6 mg/dL (0.2-1.3); Blood Urea Nitrogen 23 mg/dL (7-17); Calcium 9.2 mg/dL (8.4-10.2); Carbon Dioxide 28 mmol/L (22-30); Chloride 103 mmol/L (98-107); Estimated Glomerular Filt Rate > 60; Glucose 103 mg/dL (65-110); Potassium 4.2 mmol/L (3.4-5.0); Sodium 137 mmol/L (137-145)
== END 2022-11-09 08:18 | disposition home or self-care (01) ==
LOC: ANHLAB 08:20
PROVIDERS: PCP Family Medicine; Visit Provider Internal Medicine Hematology & Oncology
DX: C18.2 Malignant neoplasm of ascending colon (principal)
CPT/HCPCS: 36415; 80053; 82378; 85025

== ENCOUNTER 2023-05-11 09:27 | Outpatient (CLI) | payer MEDICARE, SELFPAY ==
[2023-05-11 09:40] LABS: Basophils Absolute Auto 0.1 K/mm3 (0.0-0.1); Basophils Percent Auto 0.7 % (0.2-1.2); Eosinophils Absolute Auto 0.2 K/mm3 (0-0.3); Hemoglobin 14.2 g/dL (12.0-15.0); Immature Granulocyte Absolute 0.04 K/mm3 (0.00-0.031); Immature Granulocyte Percent A 0.6 % (0-0.5); Lymphocytes Absolute Auto 1.86 K/mm3 (0.9-3.2); Mean Corpuscular HGB Conc 32.3 g/dl (32-36); Mean Corpuscular Hemoglobin 31.4 pg (26-34); Mean Corpuscular Volume 97.3 fl (80-100); Mean Platelet Volume 10.2 fl (7.4-10.4); Monocytes Absolute Auto 0.5 K/mm3 (0.1-0.6); Monocytes Percent Auto 7.1 % (2.6-8.5); Neutrophils Absolute Auto 4.3 K/mm3 (1.3-6.7); Neutrophils Percent Auto 61.6 % (45.5-73.1); Platelet Count Result 220 k/mm3 (150-375); Red Blood Count 4.52 M/mm3 (4.2-5.4); Red Cell Distribution Width 12.7 % (11.5-14.5); White Blood Count 6.9 K/mm3 (4.5-10.0)
[2023-05-11 17:05] LABS: Alanine Aminotransferase 20 U/L (6-35); Albumin Level 4.4 g/dL (3.5-5.1); Alkaline Phosphatase 62 U/L (38-126); Anion Gap 5 mmol/L (8-16); Aspartate Amino Transferase 33 U/L (14-36); Bilirubin,Total 0.6 mg/dL (0.2-1.3); Blood Urea Nitrogen 27 mg/dL (7-17); Calcium 9.3 mg/dL (8.4-10.2); Carbon Dioxide 27 mmol/L (22-30); Chloride 106 mmol/L (98-107); Estimated Glomerular Filt Rate > 60; Glucose 101 mg/dL (65-110); Potassium 4.1 mmol/L (3.4-5.0); Sodium 138 mmol/L (137-145)
[2023-05-11 17:36] LABS: Carcinoembryonic Antigen 3.9 ng/mL (0.0-3.0)
== END 2023-05-11 09:28 | disposition home or self-care (01) ==
LOC: ANHLAB 09:29
PROVIDERS: PCP Family Medicine; Visit Provider Internal Medicine Hematology & Oncology
DX: C18.2 Malignant neoplasm of ascending colon (principal)
CPT/HCPCS: 36415; 80053; 82378; 85025

== ENCOUNTER 2023-07-28 08:14 | Outpatient (CLI) | payer MEDICARE, SELFPAY ==
--- NOTE | ~2023-07-28 | MM_ITS ---
EXAMINATION: MM screening jaylan BI w delbert HISTORY: Screening TECHNIQUE: Craniocaudal and mediolateral oblique 3-D tomosynthesis images were obtained and synthetic 2-D images were generated. CAD analysis was submitted and interpreted. COMPARISON: Comparison to multiple prior studies sequentially, with oldest reviewed study dated 11/23. BREAST PARENCHYMAL COMPOSITION: Not dense: There are scattered areas of fibroglandular density. FINDINGS: There is no evidence of suspicious mass, calcification, or architectural distortion to sugg est malignancy in either breast. There has been no suspicious interval change. IMPRESSION: 1. No mammographic evidence of malignancy. 2. Recommend routine screening mammography in one year. BI-RADS Category 1: Negative Reviewed, dictated and finalized at location B.
== END 2023-07-28 08:15 | disposition home or self-care (01) ==
LOC: ANHIMG 08:16
PROVIDERS: PCP Family Medicine; Visit Provider Internal Medicine Hematology & Oncology
DX: Z12.31 Encounter for screening mammogram for malignant neoplasm of breast (principal)
CPT/HCPCS: 77063; 77067

== ENCOUNTER 2023-08-31 08:53 | Outpatient (CLI) | payer MEDICARE, SELFPAY ==
[2023-08-31 09:07] LABS: Basophils Absolute Auto 0.1 K/mm3 (0.0-0.1); Basophils Percent Auto 0.9 % (0.2-1.2); Eosinophils Absolute Auto 0.2 K/mm3 (0-0.3); Eosinophils Percent Auto 3.5 % (0-4.4); Hemoglobin 13.8 g/dL (12.0-15.0); Immature Granulocyte Absolute 0.03 K/mm3 (0.00-0.031); Immature Granulocyte Percent A 0.4 % (0-0.5); Lymphocytes Absolute Auto 1.95 K/mm3 (0.9-3.2); Lymphocytes Percent Auto 28.1 % (18.3-44.2); Mean Corpuscular HGB Conc 32.9 g/dl (32-36); Mean Corpuscular Hemoglobin 31.4 pg (26-34); Mean Corpuscular Volume 95.7 fl (80-100); Mean Platelet Volume 10.3 fl (7.4-10.4); Monocytes Absolute Auto 0.5 K/mm3 (0.1-0.6); Monocytes Percent Auto 7.2 % (2.6-8.5); Neutrophils Absolute Auto 4.2 K/mm3 (1.3-6.7); Neutrophils Percent Auto 59.9 % (45.5-73.1); Platelet Count Result 218 k/mm3 (150-375); Red Blood Count 4.39 M/mm3 (4.2-5.4); Red Cell Distribution Width 12.7 % (11.5-14.5); White Blood Count 6.9 K/mm3 (4.5-10.0)
[2023-08-31 12:21] LABS: Alanine Aminotransferase 21 U/L (6-35); Albumin Level 4.4 g/dL (3.5-5.1); Alkaline Phosphatase 67 U/L (38-126); Anion Gap 9 mmol/L (4-12); Aspartate Amino Transferase 36 U/L (14-36); Bilirubin,Total 0.8 mg/dL (0.2-1.3); Blood Urea Nitrogen 21 mg/dL (7-17); Calcium 9.2 mg/dL (8.4-10.2); Carbon Dioxide 26 mmol/L (22-30); Chloride 105 mmol/L (98-107); Estimated Glomerular Filt Rate > 60; Glucose 100 mg/dL (65-110); Potassium 4.4 mmol/L (3.4-5.0); Sodium 140 mmol/L (137-145)
[2023-08-31 12:50] LABS: Carcinoembryonic Antigen 3.5 ng/mL (0.0-3.0)
== END 2023-08-31 08:54 | disposition home or self-care (01) ==
LOC: ANHLAB 08:55
PROVIDERS: PCP Family Medicine; Visit Provider Internal Medicine Hematology & Oncology
DX: C18.2 Malignant neoplasm of ascending colon (principal)
CPT/HCPCS: 36415; 80053; 82378; 85025

== ENCOUNTER 2023-09-20 14:02 | Outpatient (CLI) | payer MEDICARE, SELFPAY ==
--- NOTE | ~2023-09-20 | CT_ITS ---
CT abdomen pelvis w con Ordering provider: Derick Baltazar MD History: 73 years Female with . Malignant neoplasm of ascending colon . Comparison: December 31, 2021 Technique: CT abdomen and pelvis with IV and without oral contrast. Automated exposure control and it erative reconstruction technique were employed. The dose-length product was 374.97 mGy-cm. 100 ML Omn ipaque 350 was given IV. Findings: VISUALIZED LOWER CHEST: Dependent atelectatic changes. UPPER ABDOMINAL ORGANS: Liver: Multiple hypodense lesions unchanged from previous examination suggestive of cysts.. Gallbladder: Normal. Spleen: Normal. Stomach/duodenum: Normal. Pancreas: Normal. Adrenals: Normal. Kidneys: Tiny cyst in the right kidney midpole. Left parapelvic cysts. PELVIC ORGANS: The bladder shows thickened wall with underfilling. Uterus: Prominent vessel is seen in the wall of the uterus and adnexal areas and also seen in the lat eral sides of the pelvis with prominent ovarian veins suggestive of pelvic congestive syndrome. BOWEL AND MESENTERY: Colon: No evidence of diverticulitis. Postoperative changes in the right side of the colon suggestive of a right hemicolectomy. Small Bowel: Normal. No obstruction. Peritoneum/mesentery: No free air or free fluid. No mesenteric lymphadenopathy. RETROPERITONEUM: Mild atheromatous disease of the abdominal aorta. No retroperitoneal lymphadenopat hy. MUSCULOSKELETAL: Superficial soft tissues: Defect in the muscle seen laterally on the right side. The superficial soft tissues are normal. Bones: Age appropriate degenerative changes of the spine. IMPRESSION: 1. Postoperative changes in the right side of the colon. 2. Multiple cysts in the liver are unchanged from previous examination. 3. Renal cysts. 4. Prominent veins in the wall of the uterus, sides of the pelvis and with prominent ovarian veins s uggestive of congestive pelvic syndrome. 5. Defect in the muscle seen laterally on the right side. Reviewed, dictated and finalized at location A. IMPRESSION: 1. Postoperative changes in the right side of the colon. 2. Multiple cysts in the liver are unchanged from previous examination. 3. Renal cysts. 4. Prominent veins in the wall of the uterus, sides of the pelvis and with pro minent ovarian veins suggestive of congestive pelvic syndrome. 5. Defect in the muscle seen laterally on the right side.
== END 2023-09-20 14:03 | disposition home or self-care (01) ==
PROVIDERS: PCP Family Medicine; Visit Provider Internal Medicine Hematology & Oncology
DX: C18.2 Malignant neoplasm of ascending colon (principal); K76.89 Other specified diseases of liver; Z98.890 Other specified postprocedural states
CPT/HCPCS: 74177; Q9967

== ENCOUNTER 2023-11-25 02:15 | Day surgery (SDC) | payer MEDICARE, SELFPAY ==
[2023-11-03 11:25] VITALS: BMI 26.2
[2023-11-25 07:07] VITALS: BP 147/78; PULSE 68; RESP 18; TEMP 36.3; O2SAT 100
[2023-11-25] MEDS: LACTATED RINGERS 1,000 ML 150 ML IV CONT (07:17)
--- NOTE | 2023-11-25 07:42 | WPDANESEPPF ---
Anes - Initial Pre Proc Eval Procedure: Operation Date: 11/25/23 08:30 Proposed Procedures p Colonoscopy - Tulio Malin MD Date/Time: 11/25/23 07:42 Surgeon: Tulio Malin MD Pre Op Diagnosis: History of Colon CA Patient Data Age: 73 Gender: F Height: 1.57 m Weight: 60.9 kg Last Vital Signs Temp 97.3 F L 11/25/23 07:07 Pulse 68 11/25/23 07:07 Resp 18 11/25/23 07:07 BP 147/78 H 11/25/23 07:07 Pulse Ox 100 11/25/23 07:07 O2 Del Method Room Air 11/25/23 07:07 Allergies Allergy/AdvReac Type Severity Reaction Status Date / Time No Known Allergies Allergy Verified 11/25/23 07:05 Home Medications Medication Instructions Recorded Confirmed Type raloxifene 60 mg tablet (Evista) 60 mg PO DAILY 09/04/19 11/25/23 History calcium carbonate (Calcium 500) 500 mg PO QAM 11/24/19 11/25/23 History cholecalciferol (vitamin D3) 25 25 mcg PO DAILY 11/24/19 11/25/23 History mcg (1,000 unit) tablet (Vitamin D3) ascorbic acid (vitamin C) 500 mg 500 mg PO DAILY 12/20/19 11/25/23 History tablet (Vitamin C) cyanocobalamin (vitamin B-12) 1,000 mcg PO DAILY 12/20/19 11/25/23 History 1,000 mcg tablet multivitamin with minerals-folic 2 tablet PO DAILY 11/29/20 11/25/23 History acid 200 mcg chewable tablet (Women's Multivitamin Gummies) pravastatin 20 mg tablet 20 mg PO DAILY #90 tabs 09/02/23 11/25/23 Rx Patient hx anesthesia problems: none Family hx anesthesia problems: none Results Review: All pre-operative results and documents have been reviewed as part of the pre-operative evaluation. [facility] Past Medical History Medical History Abdominal pain Abnormal colonoscopy 10.9.20 Amputation of left index finger 7.7.20 Colon polyps 10.9.20 colonoscopy colon polyp.reoeat in 5 years Dyspepsia Encounter for surgical aftercare following surgery on the digestive system Genetic testing 05.20.20: [facility] genetic testing negative Mixed hyperlipidemia borderline - no meds Postoperative ileus Tendinitis of right rotator cuff Trigger finger, right ring finger Trochanteric bursitis, left hip Unilateral primary osteoarthritis, left hip Surgical History Surgical History History of x3 History of colonoscopy S/P right colectomy dx: colon cancer 11.4.20 Hand access laparoscopic right colectomy with ileotransverse anastomosis Family History Family History Mother Breast cancer Father Pancreatic cancer Emphysema lung Social History Social History Smoking status: Never smoker Additional smoking assessment comments: vaping-marijuana Alcohol intake: current Drinks per week: 7 Alcohol use details: WINE/BEER Substance use: current Substance use type: marijuana Other substance usage details: gummies Last use: last night Do You Feel Safe in your Home?: Yes Lack of Transportation: No Lack of Food: Never True Current Housing: I Have Housing Concerned About Future Housing: No Difficulty Paying Gas/Electric Bills: No Difficulty Paying for Meds: No Currently Unemployed: No Education: Associate Degree Difficulty w/ Childcare or Family Care: No Living arrangements: with family Occupation/Education: retired Gender identity (if verbalized by the patient): Female Spiritual care concerns: No Agree to blood products: Yes Anes - Eval Final PreProcedure Day of Procedure 11/25/23 07:42 Patient weight: normal Heart: regular rate and rhythm Lungs: clear to auscultation Airway: Mallampati scale class 1 Neurological: alert and oriented Last oral intake: >/= 8 hours ASA classification: II Emergent: no Anesthetic plan: proceed Anesthesia type and monitoring
--- NOTE | 2023-11-25 08:15 | PM.HPGS ---
History of Present Illness History of Present Illness Consent: Risks, benefits, and alternatives have been discussed and questions answered. Patient agrees to proceed with procedure. Chief complaint: History of Colon CA Narrative: Maine Cook is a 73 year old female here for another colonoscopy. She had ascending colon cancer after routine screening colonoscopy, had right hemicolectomy with negative lymph nodes, did not require chemotherapy. Repeat colonoscopy 2020 with small TA polyp. Review of Systems Review of Systems: All systems reviewed & are unremarkable except as noted in HPI and below PMFSH Past Medical History Medical History (Updated 11/25/23 @ 08:16 by Tulio Malin MD) Abdominal pain Abnormal colonoscopy 10..20 Amputation of left index finger 7.7.20 Colon polyps 10.9.20 colonoscopy colon polyp.reoeat in 5 years Dyspepsia Encounter for surgical aftercare following surgery on the digestive system Genetic testing 3.21: [facility] genetic testing negative History of colon cancer Mixed hyperlipidemia borderline - no meds Postoperative ileus Tendinitis of right rotator cuff Trigger finger, right ring finger Trochanteric bursitis, left hip Unilateral primary osteoarthritis, left hip Surgical History Surgical History History of x3 History of colonoscopy S/P right colectomy dx: colon cancer 11.4.20 Hand access laparoscopic right colectomy with ileotransverse anastomosis Family History Family History Mother Breast cancer Father Pancreatic cancer Emphysema lung Social History Social History Smoking status: Never smoker Additional smoking assessment comments: vaping-marijuana Alcohol intake: current Drinks per week: 7 Alcohol use details: WINE/BEER Substance use: current Substance use type: marijuana Other substance usage details: gummies Last use: last night Do You Feel Safe in your Home?: Yes Lack of Transportation: No Lack of Food: Never True Current Housing: I Have Housing Concerned About Future Housing: No Difficulty Paying Gas/Electric Bills: No Difficulty Paying for Meds: No Currently Unemployed: No Education: Associate Degree Difficulty w/ Childcare or Family Care: No Living arrangements: with family Occupation/Education: retired Gender identity (if verbalized by the patient): Female Spiritual care concerns: No Agree to blood products: Yes Meds Home Medications and Allergies Home Medications Medication Instructions Recorded Confirmed Type raloxifene 60 mg tablet (Evista) 60 mg PO DAILY 09/04/19 11/25/23 History calcium carbonate (Calcium 500) 500 mg PO QAM 11/24/19 11/25/23 History cholecalciferol (vitamin D3) 25 25 mcg PO DAILY 11/24/19 11/25/23 History mcg (1,000 unit) tablet (Vitamin D3) ascorbic acid (vitamin C) 500 mg 500 mg PO DAILY 12/20/19 11/25/23 History tablet (Vitamin C) cyanocobalamin (vitamin B-12) 1,000 mcg PO DAILY 12/20/19 11/25/23 History 1,000 mcg tablet multivitamin with minerals-folic 2 tablet PO DAILY 11/29/20 11/25/23 History acid 200 mcg chewable tablet (Women's Multivitamin Gummies) pravastatin 20 mg tablet 20 mg PO DAILY #90 tabs 09/02/23 11/25/23 Rx Allergies Allergy/AdvReac Type Severity Reaction Status Date / Time No Known Allergies Allergy Verified 11/25/23 07:05 Vital Signs Vital Signs - 24 hr 11/25/23 07:07 Temperature 97.3 F L Pulse Rate 68 Respiratory Rate 18 Blood Pressure 147/78 H Pulse Oximetry 100 Oxygen Delivery Room Air Exam Const: General: comfortable and no acute distress HENMT: Face/Nose/Sinus: Normal nares present Eyes: General: appearance normal, both eyes and all related structures Neck: Neck: no JVD Res
[2023-11-25 08:32] VITALS: BP 120/62; PULSE 86; RESP 18; O2SAT 97
[2023-11-25 08:42] VITALS: BP 101/67; PULSE 75; RESP 18; O2SAT 100
[2023-11-25 08:52] VITALS: BP 116/68; PULSE 72; RESP 18; O2SAT 100
== END 2023-11-25 09:09 | disposition home or self-care (01) ==
PROVIDERS: PCP Family Medicine; Referring Provider Internal Medicine Hematology & Oncology; Visit Provider Internal Medicine Gastroenterology
PROC: 0DJD8ZZ Inspection of Lower Intestinal Tract, Via Natural or Artificial Opening Endoscopic (ICD-10-PCS; CPT 45378; principal; 2023-11-25 08:30)
DX: Z08 Encounter for follow-up examination after completed treatment for malignant neoplasm (principal); K64.8 Other hemorrhoids; Z85.038 Personal history of other malignant neoplasm of large intestine; Z90.49 Acquired absence of other specified parts of digestive tract; Z98.0 Intestinal bypass and anastomosis status; F12.90 Cannabis use, unspecified, uncomplicated
CPT/HCPCS: 45378; J2003; J2704; J7120

== ENCOUNTER 2024-01-06 08:24 | Outpatient (CLI) | payer MEDICARE, SELFPAY ==
[2024-01-06 08:41] LABS: Basophils Absolute Auto 0.1 K/mm3 (0.0-0.1); Basophils Percent Auto 0.8 % (0.2-1.2); Eosinophils Absolute Auto 0.2 K/mm3 (0-0.3); Eosinophils Percent Auto 3.5 % (0-4.4); Hematocrit 43.5 % (37.0-47.0); Immature Granulocyte Absolute 0.03 K/mm3 (0.00-0.031); Immature Granulocyte Percent A 0.5 % (0-0.5); Lymphocytes Percent Auto 30.1 % (18.3-44.2); Mean Corpuscular HGB Conc 32.2 g/dl (32-36); Mean Corpuscular Hemoglobin 30.9 pg (26-34); Mean Platelet Volume 10.1 fl (7.4-10.4); Monocytes Absolute Auto 0.5 K/mm3 (0.1-0.6); Monocytes Percent Auto 7.7 % (2.6-8.5); Neutrophils Absolute Auto 3.4 K/mm3 (1.3-6.7); Neutrophils Percent Auto 57.4 % (45.5-73.1); Platelet Count Result 213 k/mm3 (150-375); Red Blood Count 4.53 M/mm3 (4.2-5.4); Red Cell Distribution Width 12.6 % (11.5-14.5)
[2024-01-06 10:06] LABS: Alanine Aminotransferase 19 U/L (6-35); Albumin Level 4.4 g/dL (3.5-5.1); Alkaline Phosphatase 68 U/L (38-126); Anion Gap 6 mmol/L (4-12); Aspartate Amino Transferase 35 U/L (14-36); Bilirubin,Total 0.7 mg/dL (0.2-1.3); Blood Urea Nitrogen 17 mg/dL (7-17); Calcium 9.3 mg/dL (8.4-10.2); Carbon Dioxide 30 mmol/L (22-30); Chloride 103 mmol/L (98-107); Estimated Glomerular Filt Rate > 60; Glucose 112 mg/dL (65-110); Potassium 4.3 mmol/L (3.4-5.0); Sodium 139 mmol/L (137-145)
[2024-01-06 10:32] LABS: Carcinoembryonic Antigen 4.7 ng/mL (0.0-3.0)
== END 2024-01-06 08:25 | disposition home or self-care (01) ==
LOC: ANHLAB 08:25
PROVIDERS: PCP Family Medicine; Visit Provider Internal Medicine Hematology & Oncology
DX: C18.2 Malignant neoplasm of ascending colon (principal)
CPT/HCPCS: 36415; 80053; 82378; 85025

== ENCOUNTER 2024-04-19 09:49 | Outpatient (CLI) | payer MEDICARE, SELFPAY ==
[2024-04-19 10:02] LABS: Basophils Absolute Auto 0.1 K/mm3 (0.0-0.1); Basophils Percent Auto 0.7 % (0.2-1.2); Eosinophils Absolute Auto 0.2 K/mm3 (0-0.3); Eosinophils Percent Auto 1.5 % (0-4.4); Hemoglobin 13.7 g/dL (12.0-15.0); Immature Granulocyte Absolute 0.06 K/mm3 (0.00-0.031); Immature Granulocyte Percent A 0.5 % (0-0.5); Lymphocytes Percent Auto 16.9 % (18.3-44.2); Mean Corpuscular HGB Conc 32.6 g/dl (32-36); Mean Corpuscular Hemoglobin 31.1 pg (26-34); Mean Corpuscular Volume 95.5 fl (80-100); Mean Platelet Volume 10.1 fl (7.4-10.4); Monocytes Absolute Auto 0.8 K/mm3 (0.1-0.6); Monocytes Percent Auto 6.8 % (2.6-8.5); Neutrophils Absolute Auto 8.7 K/mm3 (1.3-6.7); Neutrophils Percent Auto 73.6 % (45.5-73.1); Platelet Count Result 224 k/mm3 (150-375); Red Cell Distribution Width 12.6 % (11.5-14.5); White Blood Count 11.8 K/mm3 (4.5-10.0)
--- OUTSIDE RECORDS SUMMARY | 2024-04-19 10:55 | XMS_ITS | Clinical Summary ---
Author Organization [facility] Address [address] [place] [address] Care Team Providers Care Hide Trimmer Name Role Phone Maribel Coates MD Primary Care Provider [phone] Allergies No known active allergies Medications pravastatin (PRAVACHOL) 10 mg tablet TAKE 1 TABLET BY MOUTH ONCE DAILY 11/19/2019 Active cyanocobalamin (VITAMIN B-12) 100 mcg tablet Take 100 mcg by mouth daily. Active calcium carbonate (calcium as carbonate) 648 mg (260 mg elemental) Tablet Take by mouth. Active ascorbic acid, vitamin C, (VITAMIN C) 100 mg Tablet Take 100 mg by mouth daily. Active calcium-choleca lciferol (OS-LUIS 500+D) 500 mg(1,250mg) -200 unit tablet Take 1 Tablet by mouth daily. Active raloxifene (EVISTA) 60 mg tablet Take 60 mg by mouth daily. Active Cholecalciferol , Vitamin D3, (VITAMIN D3) 10 mcg (400 unit) capsule Vitamin D3 10 mcg (400 unit) capsule Active Multivitamins with Fluoride (MULTI-VITAMIN ORAL) Multi Vitamin Active calcium carbonate (CALTRATE 600 ORAL) Caltrate Active Active Problems Problem Noted Date Diagnosed Date Malignant neoplasm of ascending colon 01/16/2020 Encounters Date Type Department Care Team Description 04/12/2024 External Device Data [facility] ABSTRACTION Provider, Abstract 03/21/2024 External Device Data [facility] ABSTRACTION Provider, Abstract from Last 3 Months Family History Medical History Relation Name Comments Healthy Brother Healthy Daughter Cancer Father Cancer Mother Healthy Sister Healthy Son Relation Name Status Comments Brother Alive Daughter Alive Father Mother Sister Alive Son Alive Social History Tobacco Use Types Packs/Day Years Used Date Smoking Tobacco: Never Smokeless Tobacco: Never Tobacco Cessation:Counseling Given: Not Answered Alcohol Use Standard Drinks/Week Comments Yes 0 (1 standard drink = 0.6 oz pur e alcohol) occassionlly Comments No Sex and Gender Information Value Date Recorded Sex Assigned at Not on file Legal Sex Female 10:03 AM INVESTIGATOR VICE Gender Identity Not on file Sexual Orientation Not on file Last Filed Vital Signs Vital Sign Reading Time Taken Comments Blood Pressure 121/70 01/10/2024 1:45 PM INVESTIGATOR VICE Pulse 69 01/10/2024 1:45 PM INVESTIGATOR VICE Temperature 36.6 C (97.8 F) 01/10/2024 1:45 PM INVESTIGATOR VICE Respiratory Rate 16 01/10/2024 1:45 PM INVESTIGATOR VICE Oxygen Saturation 93% 01/10/2024 1:45 PM INVESTIGATOR VICE Inhaled Oxygen Concentration - - Weight 62.1 kg (137 lb) 01/10/2024 1:45 PM INVESTIGATOR VICE Height 157.5 cm (5' 2 ) 05/07/2022 9:33 AM CDT Body Mass Index 25.06 05/07/2022 9:33 AM CDT Plan of Treatment Upcoming Encounters Date Type Department Care Team (Late st Contact Info) Description 04/28/2024 9:15 AM INVESTIGATOR VICE Office Visit [facility] Oncology and Hematology - Greg [address] [facility] [address] [address] Derick Baltazar MD [address] [facility] [address] [place] [address] Health Maintenance Due Date Last Done Comments DTAP/TDAP/TD VACCINES (1 - Tdap) 1968 PNEUMOCOCCAL VACCINE 65+ YEA RS (1 of 1 - PCV) 05/26/1999 ZOSTER VACCINE (1 of 2) 05/26/1999 OSTEOPOROSIS SCREENING 2014 INFLUENZA VACCINE (#1) 2023 11/08/2019 [place] Prev entative Visit/Annual Wellness Visit 02/23/2024 05/18/2022, 04/30/2020 RSV VACCINE (60+ or ) (1 - 1-dose 75+ series) 2024 BREAST CANCER SCREENING 07/27/2024 07/28/2023 COLORECTAL SCREENING Discontinued 12/07/2019 Colorectal Cancer Screening Discontinued FIT-DNA Q 3 years Discontinued FIT/FOBT Q 1 year Discontinued Flex Sig/CT Colonography Q 5 years Discontinued Procedures Procedure Name Priority Date/Time Associated Diagnosis Comments MAMMO SCREENING BILAT Routine 07/28/2023 1:38 PM CDT from Last 3 Months or Most Recently Relevant to Health Maintenance Results * MAMMO SCREENING BILAT (07/28/2023 1:38 PM CDT) Anatomical Region Laterality Modality Breast Bilateral Other Derick Baltazar MD MAMMO ORDERABLES Final Result from Last 3 Months or Most Recently Relevant to Health Maintenance [place] [address] [place] [address] [facility] [id number] Care Teams Hide Trimmer Relationship Specialty Start Date End Date Maribel Coates MD PCP - General Family Practice 01/16/20
[2024-04-19 12:17] LABS: Alanine Aminotransferase 18 U/L (6-35); Albumin Level 4.1 g/dL (3.5-5.1); Alkaline Phosphatase 73 U/L (38-126); Anion Gap 8 mmol/L (4-12); Aspartate Amino Transferase 28 U/L (14-36); Bilirubin,Total 0.7 mg/dL (0.2-1.3); Blood Urea Nitrogen 15 mg/dL (7-17); Calcium 8.9 mg/dL (8.4-10.2); Carbon Dioxide 29 mmol/L (22-30); Chloride 103 mmol/L (98-107); Estimated Glomerular Filt Rate > 60; Glucose 145 mg/dL (65-110); Potassium 3.9 mmol/L (3.4-5.0); Sodium 140 mmol/L (137-145)
[2024-04-19 12:50] LABS: Carcinoembryonic Antigen 3.3 ng/mL (0.0-3.0)
== END 2024-04-19 09:50 | disposition home or self-care (01) ==
PROVIDERS: PCP Family Medicine; Visit Provider Internal Medicine Hematology & Oncology
DX: C18.2 Malignant neoplasm of ascending colon (principal)
CPT/HCPCS: 36415; 80053; 82378; 85025

== ENCOUNTER 2024-07-05 08:43 | Outpatient (CLI) | payer MEDICARE, SELFPAY ==
--- OUTSIDE RECORDS SUMMARY | 2024-07-05 08:53 | XMS_ITS | Data Portability ---
Author Organization [facility] Address [address] [place] [address] [address] Care Team Providers Care Holistic Specialist Name Role Phone EMILIE GOLD Primary Care Provider Assessment Encounter Date Assessment Date Assessment LastModified by Organization Details LastModified Time 04/30/2020 04/30/2020 Annual gynecological exam performed. Patient will come back in a year unless there are new symptoms. [email or web address] Not available 04/30/2020 12:04:02 05/02/2021 05/02/2021 Annual gynecological exam performed. Patient will come back in a year unless there are new symptoms. [email or web address] Not available 05/02/2021 09:45:11 05/18/2022 05/18/2022 Annual gynecological exam performed. Patient will come back in a year unless there are new symptoms. [email or web address] Not available 05/18/2022 09:53:01 05/23/2024 05/23/2024 Annual gynecological exam performed. Patient will come back in a year unless there are new symptoms. [email or web address] Not available 05/23/2024 09:33:44 Plan of Treatment Reminders Order Date Submit Date Provider Last Modified By Organization Details Last Modified Time Details Appointments None recorded. Lab None recorded. Referral None recorded. Procedures None recorded. Surgeries None recorded. Imaging DEXA, axial skeleton + vertebral fracture assessment [email or web address] [place] [address] - [facility], [address], [address], [place], [address], 11:10:22 DEXA, axial skeleton + vertebral fracture assessment 2022 023 [facility], [address], [address], [place], [address], 17:49:02 Medication Orders raloxifene 60 mg tablet 2024 025 [facility] [address] [place], [address], 10:58:31 raloxifene 60 mg tablet 2021 022 [facility] [address] [place], [address], 10:08:52 Patient TargetsNo targets recorded. Patient Instructions Encounter Date Encounter Id Patient Instructions Last Modified By Organization Details Last Modified Time 04/30/2020 [id number] [email or web address] Not available 16:29:01 Reason for Referral None Reported. Results Created Date Observation Date Name Description Value Unit Range Abnormal Flag Note LastModifiedBy Organization Detail LastModifiedTime 04/27/19 21 MAMMO , scree jda, bilat eral No observ ation record ed. ALLAN Not Available 2020 16:01:39 04/30/19 21 bone densi ty No observ ation record ed. [place], [address], 05/03/2020 17:48:19 07/14/19 23 DEXA, axial skele ton + verte bral fract ure asses sment No observ ation record ed. [facility] [address], [place], [address], 05/20/2023 09:56:45 Result Notes None recorded. Problems Name Problem SNOMED Code Status Onset Date Resolution Date Notes Provider Name and Address Organization Details Recorded Time SNOMED CT Concept Completed 201505/01/2021 Encntr for dementia program director exam (general) (routine) w/o abn findings; Practice ID: 0001 Sarah valente [place] - [facility] 2 16:44:42 Screenin g for malignan t neoplasm of rectum Completed 201505/01/2021 Encounter for screening for malignant neoplasm of rectum;Pr actice ID: 0001 Sarah Monteiro [facility] 2 16:44:[address] Concept Completed 201605/01/2021 Encntr for general adult medical exam w/o abnormal findings; Practice ID: 0001 Sarah Monteiro [facility] 2 16:44:40 Adult health examinat ion Completed 201305/01/2021 ROUTINE MEDICAL EXAM;Saqib rded Elsewhere : No Locati on: [facility] So urce: EHR Chron ic: N Practic e ID: 0001 Bill able Time: 01:00:00 PM Sarah Monteiro [facility] 2 16:44:19 Speciali zed medical examinat ion Completed 201105/01/2021 Gynecolog ical Examinati on;Record ed Elsewhere : No Locati on: [facility] So urce: EHR Chron ic: N Practic e ID: 0001 Bill able Time: 01:00:00 PM Sarah Monteiro [facility] 2 16:44:45 Blood leukocyt e number above referenc e range [id number] Completed 201505/01/2021 Elevated white blood cell count, unspecifi ed;Record ed Elsewhere : No Locati on: [facility] So urce: EHR Chron ic: N Practic e ID: 0001 Bill able Time: 03:00:00 PM Sarah Monteiro [facility] 2 16:44:27 Screenin g for malignan t neoplasm of cervix Completed 201405/01/2021 Screening for malignant neoplasms of the cervix;Re corded Elsewhere : No Locati on: [facility] So urce: EHR Chron ic: N Practic e ID: 0001 Bill able Time: 01:00:00 PM Sarah Monteiro [facility] 2 16:44:34 Leukopen ia [id number] Completed 201005/01/2021 LEUKOCYTO PENIA NOS;Pract ice ID: 0001 Sarah Monteiro [facility] 2 16:44:31 Proteinu alana [id number] Completed 201005/01/2021 Proteinur ia;Practi ce ID: 0001 Sarah Monteiro [facility] 2 16:44:32 Screenin g for malignan t neoplasm of colon Completed 201005/01/2021 Special screening for malignant neoplasms , colon;Pra ctice ID: 0001 Sarah Monteiro [facility] 2 16:44:36 Disorder of bone and articula r cartilag e [id number] Completed 201005/01/2021 Osteopeni a;Practic e ID: 0001 Sarah Monteiro [facility] 2 16:44:25 Leukocyt osis [id number] Completed 201305/01/2021 LEUKOCYTO SIS NOS;Pract ice ID: 0001 Sarah Monteiro [facility] 2 16:44:29 Bone density finding [id number] Completed 201605/01/2021 osteopeni a;Recorde d Elsewhere : No Locati on: [facility] So urce: EHR Chron ic: N Practic e ID: 0001 Bill able Time: 08:30:00 AM Sarah Monteiro [facility] 2 16:44:23 Problem Notes None recorded. Procedures Surgical History Date Name Laterality Status Provider Name and Address Organization Details Recorded Time 12/12/19 24 Date of Last Colonoscopy completed Emily Vaz [facility] 05/23/2024 09:34:45 02/22/19 22 Date of Last Mammogram completed Carmen Ruggiero [facility] 05/18/2022 09:53:43 04/23/19 21 Most Recent Bone Density completed Carmen Ruggiero [facility] 05/18/2022 09:54:31 12/07/19 20 Colonoscopy completed [facility] 04/30/2020 14:51:54 05/24/19 20 right colectomy completed Krysten Calderon [place] [address], [place], [address], [facility] 05/23/2024 09:45:22 04/04/19 19 Date of Last Pap Smear completed [facility] 04/30/2020 12:05:56 section completed Emily Vaz [facility] 05/23/2024 09:38:54 tonsillectomy completed Esperanza [facility] 04/30/2020 12:07:02 Imaging Results Imaging Date Name Status LastModified by Organiz ation Details LastModified Time 04/26/2020 MAMMO, screening, bilateral completed [place] Information not available 05/01/2020 16:01:39 04/29/2020 bone density completed [place], [address], 05/03/2020 17:48:19 07/13/2022 DEXA, axial skeleton + vertebral fracture assessment completed [facility] [address], [place], [address], 05/20/2023 09:56:45 Procedure Notes None recorded. Medical Equipment None Reported. Allergies No known drug allergies Medications Name Sig Start Date Stop Date Status Note LastModified by Organization Details LastModified Time amoxicill in 500 mg capsule TAKE 1 CAPSULE BY MOUTH THREE TIMES DAILY UNTIL GONE 05/18 completed Not Available Not Available Not Available acetamino phen 300 mg-codein e 30 mg tablet TAKE 1 TABLET BY MOUTH EVERY 4 TO 6 HOURS NEEDED FOR PAIN 05/18 completed Not Available Not Available Not Available omeprazol e 40 mg capsule,d elayed release TAKE 1 CAPSULE BY MOUTH ONCE DAILY 05/18 completed Not Available Not Available Not Available ciclopiro x 8 % topical solution APPLY TOPICALL Y TO THE AFFECTED AREA EVERY DAY AT BEDTIME FOR 4 WEEKS. active Not Available Not Available No t Available pravastat in 10 mg tablet TAKE 1 TABLET BY MOUTH ONCE DAILY 05/23 completed Not Available Not Available Not Available Cipro 500 mg tablet take 1 tablet by oral route every 12 hours 03/02 completed Prescrib ed Elsewher e: No Locat ion: [facility] odify By: anshu anderson DateTime : 11/15/19 16 03:00:00 PM Not Available Not Available Not Available betametha sone dipropion ate 0.05 % topical cream APPLY CREAM TOPICALL Y TWICE DAILY NEEDED FOR ITCHING. 05/18 completed Not Available Not Available Not Available raloxifen e 60 mg tablet TAKE 1 TABLET BY MOUTH ONCE DAILY. PT MUST KEEP UPCOMING APPOINTM ENT active Not Available Not Available No t Available pravastat in 20 mg tablet TAKE 1 TABLET BY MOUTH ONCE DAILY active Not Available Not Available No t Available Vitamin D2 1,250 mcg (50,000 unit) capsule take 1 capsule by oral route every week 03/02 completed Prescrib ed Elsewher e: No Locat ion: [facility] odify By: anshu anderson DateTime : 11/11/19 14 09:46:36 AM Not Available Not Available Not Available fluticaso ne propionat e 50 mcg/actua tion nasal spray,lexii pension USE 2 SPRAY(S) IN EACH NOSTRIL ONCE DAILY active Not Available Not Available No t Available Calcio Belkis 500 mg tablet 05/02 completed Prescrib ed Elsewher e: Yes Loca tion: [facility] odify By: fran stafford DateTime : 10/17/19 11 01:00:00 PM Not Available Not Available Not Available Estate 04/30 completed Not Available Not Available Not Available Vitamin D3 10 mcg (400 unit) capsule active Prescrib ed Emilee e: Yes Loca tion: [facility] odify By: fran stafford DateTime : 10/17/19 01:00:00 PM Not Available Not Available Not Available Multi Vitamin active Not Available Not Available Not Available Caltrate active Not Available Not Avai lable Not Available Vitals Date Recorded Body height Body mass index (BMI) Body weight Systolic blood pressure Diastolic blood pressure Provider Name and Address Organization Details Last Updated DateTime 04/30/2020 157.48 cm 24 kg/m2 78682.6 g 134 mm[Hg] 70 mm[Hg] Esperanza Becerra [facility] 14:50:25 Date Recorded Body height Body mass index (BMI) Body weight Provider Name and Address Organization Details Last Updated DateTime 05/02/2021 157.48 cm 25.1 kg/m2 31749.15 g Sarah Monteiro [facility] 05/02/2021 09:45:46 Date Recorded Systolic blood pressure Diastolic blood pressure Provider Name and Address Organization Details Last Updated DateTime 05/02/2021 124 mm[Hg] 78 mm[Hg] Marilynn Urbano, [facility]- [address], [place], [address], [facility] 05/02/2021 10:05:58 Date Recorded Body height Body mass index (BMI) Body weight Systolic blood pressure Diastolic blood pressure Provider Name and Address Organization Details Last Updated DateTime 05/18/2022 157.48 cm 25.4 kg/m2 24961.34 g 130 mm[Hg] 72 mm[Hg] Carmen Ruggiero [facility] 3 09:53:12 Date Recorded Body height Body mass index (BMI) Body weight Systolic blood pressure Diastolic blood pressure Provider Name and Address Organization Details Last Updated DateTime 05/23/2024 157.48 cm 26.1 kg/m2 65918.99 g 130 mm[Hg] 76 mm[Hg] Emily Vaz [facility] 5 09:34:31 Social History Question Answer Notes LastModified by [employer] Details LastModified Time Do You Have An Advance Directive? No [email or web address] Information n ot available 05/23/2024 How Many Years Have You Consumed Alcohol? 50 [email or web address] Information not available 05/23/2024 Are You Blind Or Do You Have Difficulty Seeing? No [email or web address] Information not available 05/23/2024 What Is Your Level Of Caffeine Consumption? Moderate [email or web address] Information not available 05/23/2024 How Much Tobacco Do You Chew? None [email or web address] Information not available 05/23/2024 In The 14 Days Before Symptom Onset, Have You Had Close Contact With A Laboratory-confirme d COVID-19 While That Case Was Ill? No [email or web address] Information n ot available 05/23/2024 In The 14 Days Before Symptom Onset, Have You Had Close Contact With A Person Who Is Under Investigation For COVID-19 While That Person Was Ill? No [email or web address] Information not available 05/23/2024 Have You Been To An Area Known To Be High Risk For COVID-19? No [email or web address] Information not available 05/23/2024 Are You Deaf Or Do You Have Serious Difficulty Hearing? No Information not available 05/23/2024 What Type Of Diet Are You Following? REGULAR [email or web address] Information n ot available 05/23/2024 What Is The Highest Grade Or Level Of School You Have Completed Or The Highest Degree You Have Received? LT09146-4 [email or web address] Information not available 05/23/2024 Are There Any Guns Present In Your Home? No [email or web address] Information not available 05/23/2024 Do You Use Protection During Sex? No [email or web address] Information not available 05/23/2024 Do You Use Your Seat Belt Or Car Seat Routinely? Yes [email or web address] Information not available 05/23/2024 Do You Have Smoke And Carbon Monoxide Detectors In Your Home? No [email or web address] Information not available 05/23/2024 How Much Tobacco Do You Smoke? No Information not available 05/23/2024 Do You Use Sunscreen Routinely? No Information not available 05/23/2024 Have You Used IV Drugs? No [email or web address] Information not available 05/23/2024 Sex: Unknown Functional Status Question Answer Note LastModified by Organizat ion Details LastModified Time Do you use any illicit or recreational drugs? No [email or web address] Information not available 05/23/2024 What is your level of alcohol consumption? Moderate Information not available 05/23/2024 Are you able to walk? YESWOREST [email or web address] Information not available 05/23/2024 What is your occupation? Retired [email or web address] Information not available 05/23/2024 What is your exercise level? Moderate [email or web address] Information not available 05/23/2024 Mental Status Question Answer Note LastModified by Organization D etails LastModified Time Do you feel stressed (tense, restless, nervous, or anxious, or unable to sleep at night)? [id number] [email or web address] Information not available 05/23/2024 Family History Relationship Description Onset Age of this Age Resolved Age Notes LastModified by Organization Details LastModified Time Mother Carcinoma in situ of breast [email or web address] Not available 2020 12:06:41 Father Malignant tumor of pancreatic duct [email or web address] Not available 2020 12:06:56 Notes:Father: Cancer, pancre atic Mother: Cancer, breast Medical History Condition Response Other Y High Cholesterol Y Cancer Y Osteoporosis Y Gynecological History Statement/Question Response Date of Last Mammogram 02/22/2021 N Was last menstrual period normal Y STIs/STDs N Date of Last Colonoscopy 12/12/2023 N/A Desired Control Method None Abnormal Pap N On BCP's at Conception? N HPV Vaccine N Duration of Flow (days) 5 Current Control Method None Age at First Child 26 Frequency of Cycle (Q days) 5 Most Recent Bone Density 04/22/2020 Sexually Active? Y Menses Monthly N Age of first menstrual cycle 11 Date of Last Pap Smear 04/04/2018 Sexual Problems? N LMP Unknown N 05/09/2024 Obstetrics History GPAL:G 3 P 3 0 0 3 Type Value Full Term 3 Living 3 Total 3 Past Encounters Encounter ID Performer Location Encounter Start Date Encounter Closed Date Diagnosis/Indication Diagnosis SNOMED-CT Code Diagnosis ICD10 Code Diagnosis Note [id number] Marilynn Urbano [facility] [address] [address] 04/30/2020 14:39:49 04/30/2020 17:02:59 Gynecologic examination 54224445 Z01.419 Take Calcium with Vitamin D 12-1500mg daily. Do monthly self breast exams. It is advised to get annual flu shot in the fall and she could obtain at [facility] or [facility] take care clinic. If you haven't received the Tdap vaccine in the last 10 years you should obtain one as well. Have mammogram yearly, bone density every 2-3 years and colonoscop y every 5-10 years depending on findings and history. Engage in daily exercise of low impact aerobic exercise 45-60 minutes 4-5 times weekly. Avoid tobacco and illicit drugs as well as using moderation with alcohol intake less than 1-2 8 oz beverages daily. This lifestyle behavior pattern will lead to less health conditions and longer life span. If BMI greater than 25 weight watchers or dietary consult advised. Questions have been answered. Patient appears to understand instructio ns, but if you have any further questions call or respond to this email x 40yrs with wnl pap/hpv hx We discussed pap/hpv guidelines after age 65yo. We discussed that cervical cancers are more related to exposure to HPV virus which she has a proven 40yr hx of pap/hpv testing that is neg; this is not a genetic disease although she does have a family of various cancers possibly more geneticall y related. Mother breast cancer age 56yo-no genetic testing done Dad-pancre atic cancers Unknown health hx of other family cancers Mammo done wnl Colon-damián mar by Onc constanza Renee managed by PCP Family his tory of malignant neoplasm of breast in first degree relative [id number] Z80.3 After much discussion she has chosen to contact insurance and inquire regarding payment/co verage of invitae hereditary genetic cancers screening. We discussed pro's/cons of this testing. She feels it could benefit her children moving forward and also provide her with more informatio n regarding her own health and things to be aware of. Informatio n given to contact company & inquire regarding coverage. If wants to pursue we discussed contacting office and coming for blood work Genetic counseling to be pursued depending on results of this test. [id number] Marilynn Urbano , [place] [address] [address] 05/02/2021 09:31:45 05/02/2021 10:31:48 Gynecologic examination 24828967 Z01.419 Take Calcium with Vitamin D 12-1500mg daily. Do monthly self breast exams. It is advised to get annual flu shot in the fall and she could obtain at [facility] or [facility] care clinic. If you haven't received the Tdap vaccine in the last 10 years you should obtain one as well. Have mammogram yearly, bone density every 2-3 years and colonoscop y every 5-10 years depending on findings and history. Engage in daily exercise of low impact aerobic exercise 45-60 minutes 4-5 times weekly. Avoid tobacco and illicit drugs as well as using moderation with alcohol intake less than 1-2 8 oz beverages daily. This lifestyle behavior pattern will lead to less health conditions and longer life span. If BMI greater than 25 weight watchers or dietary consult advised. Questions have been answered. Patient appears to understand instructio ns, but if you have any further questions call or respond to this email x 40yrs with wnl pap/hpv hx We discussed pap/hpv guidelines after age 65yo. We discussed that cervical cancers are more related to exposure to HPV virus which she has a proven 40yr hx of pap/hpv testing that is neg; this is not a genetic disease although she does have a family of various cancers possibly more geneticall y related. Genetic screening discussed- done previously negMammo orderedCol on-managed by Onc doc Dexa managed by PCP Postmenopa usal osteoporosis [id number] M81.0 [id number] RAJINDER [facility] [address] [address] 05/18/2022 09:34:50 05/18/2022 10:46:11 Gynecologic examination 57704290 Z01.419 Take Calcium with Vitamin D 12-1500mg daily. Do monthly self breast exams. It is advised to get annual flu shot in the fall and she could obtain at [facility] or [facility] care clinic. If you haven't received the Tdap vaccine in the last 10 years you should obtain one as well. Have mammogram yearly, bone density every 2-3 years and colonoscop y every 5-10 years depending on findings and history. Engage in daily exercise of low impact aerobic exercise 45-60 minutes 4-5 times weekly. Avoid tobacco and illicit drugs as well as using moderation with alcohol intake less than 1-2 8 oz beverages daily. This lifestyle behavior pattern will lead to less health conditions and longer life span. If BMI greater than 25 weight watchers or dietary consult advised. Questions have been answered. Patient appears to understand instructio ns, but if you have any further questions call or respond to this email x 40yrs with wnl pap/hpv hx We discussed pap/hpv guidelines after age 65yo. We discussed that cervical cancers are more related to exposure to HPV virus which she has a proven 40yr hx of pap/hpv testing that is neg; this is not a genetic disease although she does have a family of various cancers possibly more geneticall y related. Genetic screening discussed- done previously negMammo orderedCol on-managed by Onc doc Dexa managed by PCP--order edLabs UTD PCP Postmenopa usal osteopenia [id number] M85.80 [id number] RAJINDER [facility] [address] [address] 05/23/2024 09:24:50 05/23/2024 11:19:39 Gynecologic examination 86941860 Z01.419 WWEpostmen opausalPap - UTD/no further pap indicatedS TI screen - declinedMa mmogram - scheduled for next month/orde red by PCPColon cancer screening - UTD/oncolo gyDexa - order givenRouti ne labs - UTD/PCPRTC in 1 yr or sooner if needed Do monthly self breast exams.It is advised to get annual flu shot in the fall and she could obtain at local pharmacy. If you haven't received the Tdap vaccine in the last 10 years you should obtain one as well.Have mammogram yearly, bone density every 2-3 years and stay up to date on colon cancer screening. Engage in regular exercise. Avoid tobacco and illicit drugs. This lifestyle behavior pattern will lead to less health conditions and longer life span. If BMI greater than 25 dietary consult advised.Qu estions have been answered. 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, R/B discussed, reviewed continuing therapy vs alternativ e pharmacolo gic options vs no pharmacolo gic therapyrev iewed pts medical hx, dexa hx, reviewed up to date recommenda tions regarding raloxifene useopts to continue raloxifene , rx sentdexa order given, encouraged to schedulequ estions answeredRT C in 1 yr or sooner if needed Postmenopa usal osteoporosis [id number] M81.0 Health Concerns Section Related Observation LastModified by Organization Detai ls LastModified Time None Recorded Concern Status LastModified by Organization Details LastModified Time None Recorded Advance Directives Directive N: Payers Encounter Date Sequence Insurance Name Policy Number Policy Rojas Covered Member ID Rojas Member ID Guarantor Name 04/30/2020 1 [employer] (MEDICARE REPLACEMENT HMO) [id number] 1 [place] L Huneke [id number] Ed L Huneke 05/02/2021 1 [employer] (MEDICARE REPLACEMENT HMO) [id number] 1 [place] Hune[place] [id number] Ed L Huneke 05/18/2022 1 [employer] (MEDICARE REPLACEMENT HMO) [id number] 1 [place] Huneke [id number] Ed L Huneke 05/23/2024 1 [employer] (MEDICARE REPLACEMENT HMO) [id number] 1 [place] Huneke [id number] Ed L Huneke Notes Date Note Type Note Provider Name and Address Organization Details Recorded Time 1 text/html Annual Inspector Scales Post-MenopausalReporte d bypatient.Menopausal Symptoms:no menopausal symptoms; normal vaginal lubrication Vaginal Bleeding:history of menopause having occurred; no history of post menopausal bleeding Urinary Symptoms:no hematuria; no incontinence; no nocturia; no urinary frequency Vulva:no genital lesion; no vulvar atrophy Vagina:normal vaginal discharge; no vaginal atrophy Breast:no breast lump; no nipple discharge; no breast pain Sexual Complaints:no sexual complaints Psychological Symptoms:no depression; no anxiety Preventive Measures:encourage regular mammograms starting age 39; encourage self breast examination; encourage regular exercise; encourage no tobacco use; mammogram performed within the past year; history of recent colonoscopy (Dx colon cancer 2020 surgical treatment & being followed now.); Dexa ordered by PCP this year. Marilynn Urbano, RAJINDER-BC [address], [place], [address], [place] [facility] 04/30/2020 16:29:30 2 text/html Annual Inspector Scales Post-MenopausalReporte d bypatient.Menopausal Symptoms:no menopausal symptoms; normal vaginal lubrication Vaginal Bleeding:history of menopause having occurred; no history of post menopausal bleeding Urinary Symptoms:no hematuria; no incontinence; no nocturia; no urinary frequency Vulva:no genital lesion; no vulvar atrophy Vagina:normal vaginal discharge; no vaginal atrophy Breast:no breast lump; no nipple discharge; no breast pain Sexual Complaints:no sexual complaints Psychological Symptoms:no depression; no anxiety Preventive Measures:encourage regular mammograms starting age 40; encourage self breast examination; encourage regular exercise; encourage no tobacco use; needs to schedule mammogram; history of recent colonoscopy NEHEMIAH Malin [address], [place], [address], [facility] 05/02/2021 10:09:08 3 text/html Annual Inspector Scales Post-MenopausalReporte d bypatient.Menopausal Symptoms:no menopausal symptoms; normal vaginal lubrication Vaginal Bleeding:history of menopause having occurred; no history of post menopausal bleeding Urinary Symptoms:no hematuria; no incontinence; no nocturia; no urinary frequency Vulva:no genital lesion; no vulvar atrophy Vagina:normal vaginal discharge; no vaginal atrophy Breast:no breast lump; no nipple discharge; no breast pain Sexual Complaints:no sexual complaints Psychological Symptoms:no depression; no anxiety Preventive Measures:encourage regular mammograms starting age 40; encourage self breast examination; encourage regular exercise; encourage no tobacco use; needs to schedule mammogram; history of recent colonoscopy (Due this coming year with specialist.); needs to schedule bone density WILLIE Malin [address], [place], [address], [facility] 05/18/2022 10:11:03 5 text/html Annual Inspector Scales Post-MenopausalReporte d bypatient.Menopausal Symptoms:no menopausal symptoms; normal vaginal lubrication Vaginal Bleeding:history of menopause having occurred; no history of post menopausal bleeding Urinary Symptoms:no hematuria; no incontinence; no nocturia; no urinary frequency Vulva:no genital lesion; no vulvar atrophy Vagina:normal vaginal discharge; no vaginal atrophy Breast:no breast lump; no nipple discharge; no breast pain Sexual Complaints:no sexual complaints Psychological Symptoms:no depression; no anxiety Preventive Measures:encourage regular mammograms starting age 40; encourage self breast examination; encourage regular exercise; encourage no tobacco use; history of recent colonoscopy; needs to schedule bone densityNotes:73yo wwepostmenopausaldenie s any PMBno h/o abnormal papslast pap 2019mammogram - has scheduled next month, ordered through PCPcolonoscopy - UTD/managed by oncology (h/o colon cancer)dexa- last 2022/stable, osteopenia, has been on raloxifene since 2010 RAJINDER Weiner [address], [place], [address], [facility] 05/23/2024 11:00:09 OBGyn Episode Ob Episode Information Episode Created Date Number of Fetuses Patient Bloodtype Patient rh Status Prepregnancy Weight lbs Domestic Partner Domestic Partner Phone Father Name Cash Person Status 05/01/19 21 1 CLOSED Fetus Data First Name Last Name Admitted to NICU Weight (g) Sex Living Outcome Pediatric Complications Fetus ID Race Codes Race Delivery Type Full Term [id number] Primary Bautista Calculation Initial Bautista Date Initial Exam Date Initial Exam Provider Initial Ultrasound Date Last Menstrual Period Date Ultra Sound Weeks Gestation 0 Eighteen To Twenty Week Bautista Update Ultra Sound Date Fundal Height At Umbil Quickening Date Ultra Sound Latest Weeks Gestation Final Bautista Confirmed By Final Bautista Confirmed Date Final Bautista Date Ultra Sound Latest Days Gestation 0 0 Menstrual History Last Menstrual Date Menses Monthly On Bcp Conception Prior Menses Frequency Hcg Plus Date Menarche Onset Age Delivery Information Delivery Date Delivery Type Labor Anesthesia Weeks Gestation Incision Type Labor Labor Length Hrs Delivered By Post Complications Tubal Sterilization Discharge Date Comments 9 Discharge Information Feeding Method Contraceptive Method Maternal HG B and HCT Levels Ob Episode Information Episode Created Date Number of Fetuses Patient Bloodtype Patient rh Status Prepregnancy Weight lbs Domestic Partner Domestic Partner Phone Father Name Cash Person Status 05/24/19 25 1 CLOSED Fetus Data First Name Last Nam [id number]|2024-07-05 08:54:00|2024-07-05 08:53:00|XMS_ITS|TIM CARREON|External Medical Summaries|[id number]|" Referral Summary Created on: July 05, 2024 Miguel Sanchez : 05/29/1957 Sex: Male Author Organization [facility] Address [address] [place] [address] Care Team Providers Care Holistic Specialist Name Role Phone Cornell Paul MD Primary Care Provider [phone] Allergies No known active allergies Medications hydroCHLOROthiazi de (HYDRODIURIL) 12.5 mg tablet daily. 7 Active bimatoprost (LUMIGAN) 0.01 % ophthalmic drops INSTILL 1 DROP INTO BOTH EYES ONCE DAILY Active FLUoxetine 10 mg capsule Take 1 tablet/capsu le (10 mg total) by mouth daily 4 Active cholecalciferol 25 mcg (1,000 unit) tablet Take 1 tablet (1,000 Units total) by mouth daily Active multivit-min/foli c/vit K/lycop (MEN'S 50 PLUS MULTIVITAMIN ORAL) Take 1 tablet by mouth daily Active HYDROcodone-aceta minophen (NORCO) 5-325 mg per tabletIndications :Pain Take 1 tablet by mouth every 6 (six) hours as needed for pain 10 tablet 4 Active Active Problems Problem Noted Date Diagnosed Date Carotid bruit 09/10/2017 Syncope 07/15/2015 Resolved Problems Problem Noted Date Diagnosed Date Resolved Date Hypertension 03/27/2016 05/13/2018 Social History Tobacco Use Types Packs/Day Years Used Date Smoking Tobacco: Former Smokeless Tobacco: Never Personal Safety Answer Date Recorded Have you ever been in or are you currently in a harmful physical or emotional relationship or is someone making you feel afraid or unsafe? 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 Gender Identity Not on file Sexual Orientation Not on file Last Filed Vital Signs Vital Sign Reading Time Taken Comments Blood Pressure 177/105 09/02/2023 2:30 PM CDT Pulse 58 09/02/2023 2:30 PM CDT Temperature 36.5 C (97.7 F) 09/02/2023 12:11 PM CDT Respiratory Rate 18 09/02/2023 2:30 PM CDT Oxygen Saturation 99% 09/02/2023 2:30 PM CDT Inhaled Oxygen Concentration - - Weight 75.6 kg (166 lb 10.7 oz) 024 12:11 PM CDT Height 180.3 cm (5' 11 ) 09/02/2023 12: 11 PM CDT Body Mass Index 23.25 09/02/2023 12:11 PM CDT Plan of Treatment Not on file Insurance [facility] [employer] [employer] [employer] Care Teams Holistic Specialist Relationship Specialty Start Date End Date Cornell Paul MD [address] [facility] [address] [place] [id number] PCP - General 02/12/17 "
--- OUTSIDE RECORDS SUMMARY | 2024-07-05 08:53 | XMS_ITS | Clinical Summary ---
Author Organization [facility] Lucia walsh Lopez Address [address] [place] [address] Care Team Providers Care Chaplaincy Name Role Phone Maribel Coates MD Primary Care Provider [phone] Allergies No known active allergies Medications pravastatin [...] Encounters Date Type Department Care Team Description 05/15/2024 Abstract [facility] Oncology and Hematology [facility] [address] [place] [address] Derick Baltazar MD 04/28/2024 9:15 AM HEALTH COUNSELOR Office Visit [facility] Oncology and Hematology [facility] [address] [place] [address] Derick Baltazar MD Malignant neoplasm of ascending colon (CMS/HCC) (Primary Dx) 04/27/2024 Orders Only [facility] Oncology and Hematology - Greg [address] [place] [address] Derick Baltazar MD 04/27/2024 Abstract [facility] Oncology and Hematology - Greg [address] [place] [address] Derick Baltazar MD 04/19/2024 Orders Only [facility] Oncology and Hematology - Greg [address] [place] [address] Derick Baltazar MD 04/12/2024 External Device Data STL ABSTRACTION Provider, [...] on file Legal Sex Female 10:03 AM HEALTH COUNSELOR Gender Identity Not on file Sexual Orientation Not on file Last Filed Vital Signs Vital Sign Reading Time Taken Comments Blood Pressure 125/81 04/28/2024 8:52 AM HEALTH COUNSELOR Pulse 93 04/28/2024 8:52 AM HEALTH COUNSELOR Temperature 36.2 C (97.1 F) 04/28/2024 8:52 AM HEALTH COUNSELOR Respiratory Rate 16 04/28/2024 8:52 AM HEALTH COUNSELOR Oxygen Saturation 98% 04/28/2024 8:52 AM HEALTH COUNSELOR Inhaled Oxygen Concentration - - Weight 63 kg (138 lb 12.8 oz) 04/28/2024 8:52 AM HEALTH COUNSELOR Height 157.5 cm (5' 2 ) 05/07/2022 9:33 AM CDT Body Mass Index 25.39 05/07/2022 9:33 AM CDT Plan of Treatment Upcoming Encounters Date Type Department Care Team (Late st Contact Info) Description 07/14/2024 8:30 AM CDT Office Visit [facility] Oncology and Hematology - Greg [address] [facility] [address] [place] [address] Derick Baltazar MD [address] [facility] [address] [place] [address] Health Maintenance Due Date Last Done Comments DTAP/TDAP/TD VACCINES (1 - Tdap) 1968 PNEUMOCOCCAL VACCINE 50+ YEA RS (1 of 1 - PCV) 05/26/1999 ZOSTER VACCINE (1 of 2) 05/26/1999 OSTEOPOROSIS SCREENING 2014 INFLUENZA VACCINE (#1) 2023 11/08/2019 COVID-19 Vaccine (2 - season) 10/24/202312/2021 [place] Prev entative Visit/Annual Wellness Visit 02/23/2024 05/18/2022, 04/30/2020 RSV VACCINE (60+ or ) (1 - 1-dose 75+ series) 2024 COLORECTAL SCREENING Discontinued 12/07/2019 Colorectal Cancer Screening Discontinued FIT-DNA Q 3 years Discontinued FIT/FOBT Q 1 year Discontinued Flex Sig/CT Colonography Q 5 years Discontinued Procedures Procedure Name Priority Date/Time Associated Diagnosis Comments COMPREHENSIVE METABOLIC PANEL Routine 04/19/2024 3:38 PM HEALTH COUNSELOR CBC WITH AUTODIFFERENTIAL Routine 2024 11:54 AM HEALTH COUNSELOR from Last 3 Months Results * COMPREHENSIVE METABOLIC PANEL (04/19/2024 3:38 PM HEALTH COUNSELOR) Blood Derick Baltazar MD CHEMISTRY ORDERABLES Final Resu lt * CBC WITH AUTODIFFERENTIAL (04/19/2024 11:54 AM HEALTH COUNSELOR) Blood us Derick Baltazar MD HEMATOLOGY ORDERABLES Final Res ult from Last [address] [facility] Address: [facility] [id number] [place] [address] Care Teams Chaplaincy Relationship Specialty Start Date End Date Maribel Coates MD PCP - General Family Practice 01/16/20
[2024-07-05 08:55] LABS: Basophils Absolute Auto 0.1 K/mm3 (0.0-0.1); Eosinophils Absolute Auto 0.2 K/mm3 (0-0.3); Eosinophils Percent Auto 2.6 % (0-4.4); Hematocrit 44.4 % (37.0-47.0); Hemoglobin 14.5 g/dL (12.0-15.0); Immature Granulocyte Absolute 0.03 K/mm3 (0.00-0.031); Immature Granulocyte Percent A 0.5 % (0-0.5); Lymphocytes Absolute Auto 1.61 K/mm3 (0.9-3.2); Lymphocytes Percent Auto 25.9 % (18.3-44.2); Mean Corpuscular HGB Conc 32.7 g/dl (32-36); Mean Corpuscular Hemoglobin 31.4 pg (26-34); Mean Corpuscular Volume 96.1 fl (80-100); Mean Platelet Volume 10.2 fl (7.4-10.4); Monocytes Absolute Auto 0.5 K/mm3 (0.1-0.6); Neutrophils Absolute Auto 3.9 K/mm3 (1.3-6.7); Platelet Count Result 211 k/mm3 (150-375); Red Blood Count 4.62 M/mm3 (4.2-5.4); Red Cell Distribution Width 12.7 % (11.5-14.5); White Blood Count 6.2 K/mm3 (4.5-10.0)
[2024-07-05 11:12] LABS: Alanine Aminotransferase 23 U/L (6-35); Albumin Level 4.4 g/dL (3.5-5.1); Alkaline Phosphatase 72 U/L (38-126); Anion Gap 7 mmol/L (4-12); Aspartate Amino Transferase 48 U/L (14-36); Bilirubin,Total 0.7 mg/dL (0.2-1.3); Blood Urea Nitrogen 25 mg/dL (7-17); Calcium 9.1 mg/dL (8.4-10.2); Carbon Dioxide 27 mmol/L (22-30); Chloride 106 mmol/L (98-107); Estimated Glomerular Filt Rate 60; Glucose 104 mg/dL (65-110); Potassium 4.3 mmol/L (3.4-5.0); Sodium 140 mmol/L (137-145)
[2024-07-05 11:40] LABS: Carcinoembryonic Antigen 4.3 ng/mL (0.0-3.0)
== END 2024-07-05 08:44 | disposition home or self-care (01) ==
LOC: ANHLAB 08:44
PROVIDERS: PCP Family Medicine; Visit Provider Internal Medicine Hematology & Oncology
DX: C18.2 Malignant neoplasm of ascending colon (principal)
CPT/HCPCS: 36415; 80053; 82378; 85025

== ENCOUNTER 2024-08-14 09:09 | Outpatient (CLI) | payer MEDICARE, SELFPAY ==
--- NOTE | ~2024-08-14 | MM_ITS ---
EXAMINATION: MM screening jaylan BI w delbert HISTORY: Screening mammogram, family history of breast cancer in her mother. TECHNIQUE: Craniocaudal and mediolateral oblique 3-D tomosynthesis images were obtained and synthetic 2-D images were generated. CAD analysis was submitted and interpreted. COMPARISON: 07/28/2023, 07/02/2022, 05/05/2021 BREAST PARENCHYMAL COMPOSITION:Not Dense. There are scattered areas of fibroglandular density. FINDINGS: No suspicious mass, calcification, or architectural distortion are identified in either samia ast to suggest malignancy. There has been no suspicious interval change. IMPRESSION: No mammographic evidence of malignancy. Recommend routine screening mammography in one year. BI-RADS Category 1: Negative Reviewed, dictated and finalized at location .
== END 2024-08-14 09:10 | disposition home or self-care (01) ==
PROVIDERS: PCP Family Medicine; Visit Provider Family Medicine
DX: Z12.31 Encounter for screening mammogram for malignant neoplasm of breast (principal)
CPT/HCPCS: 77063; 77067

== ENCOUNTER 2024-08-15 08:39 | Outpatient (CLI) | payer MEDICARE, SELFPAY ==
--- NOTE | ~2024-08-15 | DEXA_ITS ---
Bone Density Report Name: ORLANDO WILSON Age: 74 Sex: Female Ethnicity: White Date of : 1950 Indication: postmenopausal; screening for osteoporosis; Referring Provider: HANNAH GARZON Study: Bone densitometry was performed. Exam Date: August 15, 2024 Accession number: [id number] Bone Density: Region BMD T-score Z-score Classification AP Spine(L1-L4) 0.974 -0.7 1.7 Normal Femoral Neck (Left) 0.755 -0.8 1.2 Normal Total Hip (Left) 0.917 -0.2 1.6 Normal Femoral Neck (Right) 0.679 -1.5 0.6 Osteopenia Total Hip (Right) 0.853 -0.7 1.1 Normal Total Hip Mean 0.885 -0.5 1.4 Normal World Health Organization criteria for BMD impression classify patients as: Normal (T-score at or above -1.0), Osteopenia (T-score between -1.0 and -2.5), or Osteoporosis (T-score at or below -2.5). 10-year Fracture Risk(1): Major Osteoporotic Fracture 11% Hip Fracture 2.4% Reported Risk Factors: [place] (), Neck BMD=0.679, BMI=24.9 (1) FRAX(R) Version 3.08. Fracture probability calculated for an untreated patient. Fracture probability may be lower if the patient has received treatment. Previous Exams: -- Region Exam Age BMD T-score BMD Change BMD Change Date g/cm2 vs Baseline vs Previous -- AP Spine (L1-L4) 08/15/2024 74 0.974 -0.7 -1.6% -1.6% 07/02/2022 72 0.990 -0.5 Total Hip(Left) 08/15/2024 74 0.917 -0.2 -2.1% -2.1% 07/02/2022 72 0.937 0.0 Total Hip(Right) 08/15/2024 74 0.853 -0.7 0.1% 0.1% 07/02/2022 72 0.853 -0.7 -- *Denotes significance at 95% confidence level, LSC for AP Spine = 0.022 g/cm2, LSC for Total Hip = 0.027 g/cm2 Clinical Information Provided by Patient: Has used the following medications: Evista (i.e. raloxifene), Vitamin D, Calcium Patient maximum height was 63 Menopause Age: 53 Drinks caffeinated beverages Onset of menses at age 11 Number of children 3 Impression: The patient has low bone mass, based on the Right Femoral Neck T-score. The patient has an estimated ten-year risk of hip fracture of 2.4% and an estimated ten-year risk of major fracture of 11%, based on the WHO FRAX algorithm. No significant bone loss was observed. Discussion: BONE DENSITY IS LOW AT ONE OR MORE SKELETAL SITES. This patient's lowest T-score is low at one or more skeletal sites. It meets the World Health Organization's (WHO) criteria for ?low bone mass? (T-score between -1.0 and -2.5). The patient's 10-year risk of fracture as calculated by FRAX is less than the threshold where pharmacological therapy is recommended by the National Osteoporosis Foundation (NOF). However, all treatment decisions require clinical judgment and consideration of individual patient factors, including patient preferences, comorbidities, previous drug use, risk factors not captured in the FRAX model (e.g., frailty, falls, vitamin D deficiency, increased bone turnover, interval significant decline in bone density) and possible under or overestimation of fracture risk by FRAX. The patient should follow a healthful lifestyle (good nutrition with adequate calcium and vitamin D, and appropriate weight-bearing exercise). Follow-Up: Consider repeating this study in 2 to 3 years to reassess this patient's status, or sooner if there is some new clinical indication. Reported by: ANABEL on 08/15/2024 9:03:00 AM. Reviewed, dictated and finalized at location A.
== END 2024-08-15 08:40 | disposition home or self-care (01) ==
LOC: MICIMG 08:40
PROVIDERS: PCP Family Medicine; Visit Provider Obstetrics & Gynecology
DX: Z78.0 Asymptomatic menopausal state (principal); M85.851 Other specified disorders of bone density and structure, right thigh
CPT/HCPCS: 77080

== ENCOUNTER 2024-10-03 08:29 | Outpatient (CLI) | payer MEDICARE, SELFPAY ==
[2024-10-03 08:41] LABS: Hematocrit 44.6 % (37.0-47.0); Hemoglobin 14.5 g/dL (12.0-15.0); Immature Granulocyte Percent A 0.5 % (0-0.5); Lymphocytes Absolute Auto 1.88 K/mm3 (0.9-3.2); Mean Corpuscular HGB Conc 32.5 g/dl (32-36); Mean Corpuscular Hemoglobin 31.2 pg (26-34); Mean Corpuscular Volume 95.9 fl (80-100); Nucleated Red Blood Cells Absolute Auto 0.000 K/mm3 (0.0-0.012); Nucleated Red Blood Cells Perc 0.0 % (0.0-0.2); Platelet Count Result 225 k/mm3 (150-375); Red Blood Count 4.65 M/mm3 (4.2-5.4); White Blood Count 6.4 K/mm3 (4.5-10.0)
--- OUTSIDE RECORDS SUMMARY | 2024-10-03 08:42 | XMS_ITS | Clinical Summary ---
Author Organization [facility] Lucia Goodwin Address [address] [place] [address] Care Team Providers Care Bottle Packing Machine Cleaner Name Role Phone Maribel Coates MD Primary Care Provider [phone] Allergies No known active allergies Medications pravastatin [...] Encounters Date Type Department Care Team Description 09/06/2024 External Device Data STL ABSTRACTION Provider, Abstract 09/05/2024 External Device Data STL ABSTRACTION Provider, Abstract 08/09/2024 External Device Data STL ABSTRACTION Provider, Abstract 07/25/2024 External Device Data STL ABSTRACTION Provider, Abstract 07/14/2024 8:30 AM CDT Office Visit [facility] Oncology and Hematology - Greg [address] [place] [address] Derick Baltazar MD Malignant neoplasm of ascending colon (CMS/HCC) (Primary Dx) 07/13/2024 External Device Data STL ABSTRACTION Provider, Abstract 07/12/2024 External Device Data STL ABSTRACTION Provider, Abstract 07/11/2024 External Device Data STL ABSTRACTION Provider, Abstract [...] on file 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 Gender Identity Not on file Sexual Orientation Not on file Last Filed Vital Signs Vital Sign Reading Time Taken Comments Blood Pressure 126/73 07/14/2024 8:39 AM CDT Pulse 71 07/14/2024 8:39 AM CDT Temperature 36.3 C (97.4 F) 07/14/2024 8:39 AM CDT Respiratory Rate 15 07/14/2024 8:39 AM CDT Oxygen Saturation 93% 07/14/2024 8:39 AM CDT Inhaled Oxygen Concentration - - Weight 64.2 kg (141 lb 9.6 oz) 07/14/2024 8:39 A M CDT Height 157.5 cm (5' 2) 05/07/2022 9:33 AM CDT Body Mass Index 25.9 05/07/2022 9:33 AM CDT Plan of Treatment Upcoming Encounters Date Type Department Care Team (Late st Contact Info) Description 10/11/2024 2:30 PM CDT Office Visit [facility] Oncology and Hematology Greg [address] [place] [address] Derick Baltazar MD [address] [place] [address] Health Maintenance Due Date Last Done Comments DTAP/TDAP/TD VACCINES (1 - Tdap) 1968 PNEUMOCOCCAL VACCINE 50+ YEA RS (1 of 1 - PCV) 05/26/1999 ZOSTER VACCINE (1 of 2) 05/26/1999 OSTEOPOROSIS SCREENING 2014 COVID-19 Vaccine (2 - 2023-2 5 season) 2023 02/01/2022 RSV VACCINE (60+ or ) (1 - 1-dose 75+ series) 2024 INFLUENZA VACCINE (#1) 2024 11/08/2019 COLORECTAL SCREENING Discontinued 12/12/2023, 12/07/19 Colorectal Cancer Screening Discontinued [place] ([place]) Prev entative Visit/Annual Wellness Visit Completed 05/23/2024, 05/18/2022, 04/30/2020 FIT-DNA Q 3 years Discontinued FIT/FOBT Q 1 year Discontinued Flex Sig/CT Colonography Q 5 years Discontinued Insurance [facility] MCR Care Teams Bottle Packing Machine Cleaner Relationship Specialty Start Date End Date Maribel Coates MD PCP - General Family Practice 01/16/20
[2024-10-03 09:37] LABS: Alanine Aminotransferase 22 U/L (6-35); Albumin Level 4.5 g/dL (3.5-5.1); Alkaline Phosphatase 64 U/L (38-126); Anion Gap 7 mmol/L (4-12); Aspartate Amino Transferase 39 U/L (14-36); Bilirubin,Total 0.8 mg/dL (0.2-1.3); Blood Urea Nitrogen 21 mg/dL (7-17); Calcium 9.4 mg/dL (8.4-10.2); Carbon Dioxide 27 mmol/L (22-30); Chloride 105 mmol/L (98-107); Estimated Glomerular Filt Rate 54; Glucose 114 mg/dL (65-110); Potassium 4.2 mmol/L (3.4-5.0); Sodium 139 mmol/L (137-145); Total Protein 7.6 g/dL (6.3-8.2)
[2024-10-03 10:13] LABS: Carcinoembryonic Antigen 3.8 ng/mL (0.0-3.0)
== END 2024-10-03 08:30 | disposition home or self-care (01) ==
LOC: ANHLAB 08:30
PROVIDERS: PCP Family Medicine; Visit Provider Internal Medicine Hematology & Oncology
DX: C18.2 Malignant neoplasm of ascending colon (principal)
CPT/HCPCS: 36415; 80053; 82378; 85025

== ENCOUNTER 2024-10-16 09:39 | Outpatient (CLI) | payer MEDICARE, SELFPAY ==
--- NOTE | ~2024-10-16 | CT_ITS ---
EXAMINATION: CT abdomen pelvis w con DATE: 10/16/2024 10:17 INDICATION: Malignant neoplasm of ascending colon. Follow-up TECHNIQUE: Computed tomography (CT) of the abdomen and pelvis was performed with intravenous contrast. COMPARISON: 09/20/2023 FINDINGS: There are a few small reticular and bandlike opacities in lower lungs likely atelectasis or scarring. Multiple liver cysts, unchanged. No new liver lesions. Spleen, adrenal glands, pancreas and gallbladder are unremarkable. Kidneys are unremarkable. Abdominal aorta is partially calcified but is not aneurysmal. No enlarged lymph nodes in the abdomen. No enlarged lymph nodes in the pelvis. Bladder is unremarkable. CT appearance of uterus is stable unremarkable. 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 Moderate to large amount of stool. No dilated bowel loops. Grossly stable anastomotic suture line in bowel in the right lower abdomen and right upper pelvis. Multilevel degenerative change in the visualized spine similar to the prior study. Grossly stable defect in the muscle seen laterally along the right side. IMPRESSION: 1. Overall, grossly stable exam as compared to the study from 09/20/2023. Reviewed, dictated and finalized at location Q.
--- OUTSIDE RECORDS SUMMARY | 2024-10-16 10:22 | XMS_ITS | Clinical Summary ---
Author Organization [facility] Marianodougmarquez Goodwin Address [address] [place] [address] Care Team Providers Care Venue Manager Name Role Phone Maribel Coates MD Primary Care Provider [phone] Allergies No known active allergies Medications pravastatin [...] Encounters Date Type Department Care Team Description 10/11/2024 External Device Data STL ABSTRACTION Provider, Abstract 10/10/2024 Telephone [facility] Oncology and Hematology - Greg [address] [place] [address] Derick Baltazar MD Follow up appt 10/04/2024 Telephone [facility] Oncology and Hematology - Greg [address] [place] [address] Scan 10/03/2024 External Device Data STL ABSTRACTION Provider, Abstract 10/03/2024 Orders Only [facility] Oncology and Hematology - Greg [address] [place] [address] Derick Baltazar MD 09/06/2024 External Device Data STL ABSTRACTION Provider, [...] on file 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 Gender Identity Not on file Sexual Orientation [...] Care Team (Late st Contact Info) Description 11/08/2024 11:00 AM CDT Office Visit [facility] Oncology and Hematology - Greg [address] [facility] [address] [place] [address] Derick Baltazar MD [address] [facility] [address] [place] [address] Health Maintenance Due Date Last Done Comments DTAP/TDAP/TD VACCINES (1 - Tdap) 1968 PNEUMOCOCCAL VACCINE 50+ YEA RS (1 of 1 - PCV) 05/26/1999 ZOSTER VACCINE (1 of 2) 05/26/1999 OSTEOPOROSIS SCREENING 2014 COVID-19 Vaccine (2 - 2023- season) 10/24/202312/2021 RSV VACCINE (60+ or ) (1 - 1-dose 75+ series) 2024 INFLUENZA VACCINE (#1) 2024 11/08/2019 COLORECTAL SCREENING Discontinued 12/12/2023, 12/07/19 20 Colorectal Cancer Screening Discontinued FIT-DNA Q 3 years Discontinued FIT/FOBT Q 1 year Discontinued Flex Sig/CT Colonography Q 5 years Discontinued Procedures Procedure Name Priority Date/Time Associated Diagnosis Comments COMPREHENSIVE METABOLIC PANEL Routine 10/03/2024 1:07 PM CDT from Last 3 Months Results * COMPREHENSIVE METABOLIC PANEL (10/03/2024 1:07 PM CDT) Blood us Derick Baltazar MD CHEMISTRY ORDERABLES Final Resu lt from Last 3 Months Insurance [employer] MCR Care Teams Venue Manager Relationship Specialty Start Date End Date Maribel Coates MD PCP - General Family Practice 01/16/20
== END 2024-10-16 09:40 | disposition home or self-care (01) ==
PROVIDERS: PCP Family Medicine; Visit Provider Internal Medicine Hematology & Oncology
DX: C18.2 Malignant neoplasm of ascending colon (principal)
CPT/HCPCS: 74177; Q9967